=== PATIENT | female | born 1940 | race Caucasian/White ===

== ENCOUNTER → 2018-10-21 11:32 | Outpatient (CLI) | payer MEDICARE, OTHER, SELFPAY ==
--- NOTE | 2018-10-21 | DI.MRI.S_ITS ---
PROCEDURE: MR KNEE RT WO CON INDICATIONS: OSTEOARTHRITIS OF RIGHT KNEE TECHNIQUE: Noncontrast sagittal PD fast spin echo and T2 fast spin echo with fat saturation, sagittal 3-D FLASH with fat saturation; coronal T1 spin echo and PD fast spin echo with fat saturation, and axial PD fast spin echo with fat saturation through the knee. COMPARISON: None. FINDINGS: Image quality: Excellent. Menisci: Marked truncation of the free margin of the posterior horn of the medial meniscus. There is also truncation of the free margin of the body with near complete extrusion. Lateral meniscal tear involving the body with extension of abnormal signal to the superior articular surface. There is also truncation of the free margin of the body. Cruciate ligaments: The anterior cruciate ligament is not seen and is probably ruptured. The posterior cruciate ligament appears intact. Medial structures: The medial collateral ligament appears intact. There is tendinopathy versus strain of the insertion of the semimembranosus tendon with intrasubstance signal change. Lateral structures: Age-indeterminate sprain of the proximal lateral collateral ligament. The long and short heads of the biceps femoris tendon appear intact. The popliteus tendon appears normal; the popliteofibular ligament appears intact. The posterosuperior and anteroinferior popliteomeniscal fascicles appear intact. The arcuate and fabellofibular ligaments appear intact, on either side of the lateral inferior geniculate artery. Iliotibial band appears normal. Anterior structures: The quadriceps and patellar tendons appear intact. Superficial infrapatellar subcutaneous edema is present. Patellar alignment is normal. No femoral trochlear dysplasia or ventral trochlear prominence. No edema in the infrapatellar fat pad. Bones and cartilage: No bone marrow contusions or fractures. Within the medial compartment there is full-thickness femoral and tibial articular cartilage loss. Within the lateral compartment, there is diffuse partial thickness loss of femoral and tibial cartilage. Within the patellofemoral compartment, there is mild partial thickness loss of cartilage overlying the lateral patellar facet. Joint space: Large joint effusion is present. Tiny subcentimeter Lau's cyst. Small sub-5 mm foci of debris within the suprapatellar recess, for example image 126 series 9, image 10 series 6 IMPRESSION: Medial meniscal tear with near complete extrusion of the body. Lateral meniscal tear involving the body. 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 Please correlate to clinical exam findings. Large joint effusion. Small amount of debris within the suprapatellar recess Tiny subcentimeter Lau's cyst. Severe degenerative joint disease, most advanced in the medial compartment where there is full-thickness femoral and tibial articular cartilage loss. Semimembranosus insertional tendinopathy versus strain. Dictated by: Chay Chan M.D. on 10/21/2018 at 13:26 Approved by: Chay Chan M.D. on 10/21/2018 at 14:16
== END ==
PROVIDERS: PCP Family Medicine; Visit Provider Orthopaedic Surgery
DX: M17.11 Unilateral primary osteoarthritis, right knee (principal); S83.281A Other tear of lateral meniscus, current injury, right knee, initial encounter; S83.241A Other tear of medial meniscus, current injury, right knee, initial encounter; S83.511A Sprain of anterior cruciate ligament of right knee, initial encounter; M25.461 Effusion, right knee
CPT/HCPCS: 73721

== ENCOUNTER 2019-01-11 08:34 | Inpatient (IN) | payer MEDICARE, OTHER, SELFPAY ==
[2018-12-23 08:35] VITALS: BMI 30.9
[2019-01-11] VITALS (19 sets, daily range): BP systolic 99–194; BP diastolic 42–86; PULSE 44–68; RESP 12–18; TEMP 35.6–36.7; O2SAT 90–98; BMI 30.7
--- NOTE | 2019-01-11 06:00 | DI.RAD.S_ITS ---
PROCEDURE: XR KNEE RT 1TO2V INDICATIONS: Postop right total knee TECHNIQUE: 2 view(s) of the knee acquired. COMPARISON: ARELI Toth, KNEE 1-2 VIEWS LEFT, 11/22/2009, 15:35. FINDINGS: Bones: Patient is status post knee joint arthroplasty. Hardware components are in expected positions. Visualized bony structures are intact. Soft tissues: Overlying postoperative changes are noted. IMPRESSION: Expected postoperative appearance Dictated by: Chay Chan M.D. on 01/11/2019 at 15:35 Approved by: Chay Chan M.D. on 01/11/2019 at 15:36
[2019-01-11] MEDS: LACTATED RINGERS 1,000 ML 42 ML IV ×2 (09:00→13:24)
[2019-01-11] MEDS: ACETAMINOPHEN 325 MG TABLET 975 MG PO ×2 (09:28→21:36)
[2019-01-11] MEDS: PREGABALIN 75 MG CAPSULE PO (09:28)
[2019-01-11] MEDS: VANCOMYCIN 1,000 MG/200 ML FROZ.PIGGY 200 MG IV ×2 (10:21→22:16)
--- NOTE | 2019-01-11 11:59 | PM.PREOP ---
Pre-operative Note Interval Note History & Physical reviewed/Exam performed by Physician: Yes Changes to H&P: No
--- NOTE | 2019-01-11 12:01 | P.OP_ITS ---
Operative Date/Time/Diagnoses Date of procedure: 01/11/19 Time of procedure: 12:00 Pre-op diagnosis: right knee OA Post-op diagnosis: same Procedure & Clinicians Procedure: right total knee arthroplasty Same procedure as scheduled: Yes Indications: The patient has had progressively worsening right knee pain with radiographic changes consistent with arthritis. Non-operative management has failed and the patient has requested total knee replacement. The risks, benefits and alternatives to surgery were discussed with the patient prior to proceeding. Risks discussed included, but were not limited to, failure to relieve pain, stiffness, infection, nerve damage, deep venous thrombosis, pulmonary embolism, stroke, coma, heart attack, permanent paralysis and , as well as the potential need for eventual revision of the prosthetic. Surgeon: Abby Haji Logistic Specialist: Thierry Carter Anesthesia Type: General and Spinal Operative Notes Findings: Severe right knee osteoarthritis especially in the medial compartment with a moderate cyst in the lateral compartment tibial plateau, good stability, full range of motion Closure Type: primary Specimen(s): none sent Prosthetic devices, grafts, tissues, transplants, or devices: [employer] DCS 2 size 4 right femur, size 3 tibia, +9 poly, 35 x 9 mm patella round Applied: drain(s) Estimated Blood Loss (mL): 250 Blood products transfused: none Tourniquet time (min): 7 Procedure in detail: The patient was seen in the pre-operative area, where the patient identified the right knee as the operative site and this was marked with my initials. The patient received pre-operative antibiotics, and was taken to the operating room and placed on the operative table in the supine position. After satisfactory anesthesia, a corporate fitness program coordinator out was performed. The right leg was encircled with a tourniquet about the proximal thigh, and the leg was prepared from the toes to the tourniquet with ChloroPrep in the usual fashion and draped through sterile drapes. The leg was elevated and exsanguinated with Eschmark bandage and the tourniquet inflated to [250] mmHg pressure. The tourniquet was noted to be a venous tourniquet and was let down after 7 min. There was minimal bleeding. The knee was approached through an approximately 18 cm incision centered over the patella and carried into the knee through a medial parapatellar arthrotomy. A portion of the medial and lateral meniscus was resected. Soft tissue was carefully mobilized around the patella the patella was measured with a caliper. Bone was resected from the patella and the patellar height was reconstituted with up an appropriate sized patellar component. A cover was then placed on the patella. A small amount of additional medial and lateral meniscus was resected. The visionare guide fit well to the distal femur. It looked like an appropriate distal femoral cut and the cut was made without difficulty. The rotation was assessed and the appropriate size femoral guide was placed on the distal femur and finishing cuts were made. There was no evidence of notching. The anterior, posterior and chamfer cuts were then made. The posterior osteophytes and soft tissues were then removed. The posterior capsule was injected with part of a mixture of 60 ml 0.25% Marcaine mixed with 20 ml Exparel for post operative pain control. The remainder of this mixture was injected into the capsule and subcutaneous tissues during cement curing. The tibia was prepared and the visionaire guide fit well to the distal tibia. The rotation was assessed. The patient was placed in extension residual medial and lateral meniscus as well as any residual bone was carefully resected. [No] additional tibia was resected. Hemostasis was achieved especially posteriorly. Additional local was injected into the posterior capsule. The extension gap was assessed and additional releases for gap balancing were performed as necessary. It was well balanced. The femoral component was trial was placed and the notch was finished. Trial tibial and femoral components were then placed and the knee placed through a range of motion. Range of motion was [0-130], with good stability throughout the range. The trials were then removed, and the tibia was finished. The bone was prepared with pulsatile lavage, and dried with a sponge. Cement was applied and the final prosthetics placed. Excess cement was removed during and after cement curing. A brief Betadine soak was performed. After confirming there was no extruded cement posteriorly, the final tibial insert was placed. The knee was copiously irrigated and the tourniquet deflated. Hemostasis was obtained with the [Bovie]. A drain was placed and brought out superolaterally. The capsule was closed with interrupted Vicryl suture. The subcutaneous layer was closed with barbed sutures, and the skin with a running 3-0 V-Lock suture and Surgical glue. An Aquacel Ag dressing was applied and the patient was taken to recovery having tolerated the procedure well. Complications: none Condition: stable Disposition: Acute Care Plan for aftercare: The patient will be maintained on a standard total knee replacement protocol with weight bearing as tolerated. The patient will receive aspirin and sequential compression devices for DVT prophylaxis. The patient will be discharged home when safe for the home environment.
[2019-01-11] MEDS: GENTAMICIN 200 MG in SODIUM CHLORIDE 0.9% 100 ML 105 ML IV (12:02)
--- NOTE | 2019-01-11 12:39 | SUR.OPER ---
Supine on padded OR bed. Pillow under head, arms secured on padded armboards <90 degree abduction. Safety belt across torso. Non-operative leg secured with tape over blanket over lower leg. Operative leg secured in DeMayo/Hipolito positioner. Foam padded brace at thigh of operative leg.
[2019-01-11] MEDS: BUPIVACAINE 0.25% W/ EPI VIAL 50 ML INJ (12:47)
[2019-01-11] MEDS: BUPIVACAINE LIPOSOME 266 MG/20 ML VIAL INJ (12:48)
[2019-01-11] MEDS: POVIDONE-IODINE 15 ML, SODIUM CHLORIDE 0.9% 250 ML TOP (12:49)
--- NOTE | 2019-01-11 15:25 | SUR.PHASEI ---
Spoke with DR Mcdonald regarding BP in light of large difference preop versus post op. With spinal he is okay with assymptomatic SBP >110 for transfer. At this time feet are moving but not felt. Slowly decreasing O2 needs.
[2019-01-11] MEDS: ONDANSETRON 4 MG/2 ML INJ IV (18:36)
[2019-01-11] MEDS: LACTATED RINGERS 1,000 ML 125 ML IV (18:43)
[2019-01-11] MEDS: DOCUSATE 100 MG CAPSULE PO (21:37)
[2019-01-11] MEDS: ASPIRIN EC 81 MG TABLET PO (21:37)
[2019-01-11] MEDS: CHOLECALCIFEROL (VITAMIN D3) 1,000 UNIT TABLET 1000 UNIT PO (21:37)
[2019-01-11] MEDS: OXYCODONE IR 5 MG TABLET PO (21:39)
--- NOTE | 2019-01-11 22:50 | PC.ADMIT ---
Admission Note: Pt arrived to floor. Pt stable. but HR bradycardic in mid to low 40s. reports lightheadedness. Pt started on fluids. admission completed. Uses call light. ate some dinner felt ok. then got up to try to pee and sat back down ad threw up. zofran given. pt stated this helped tremendously. Pt laid back down. ice applied ot knee. reports feeling back to leg but minimal to no pain. light toe touch to right leg. tolerated well to BSC. SCDS on to sancho legs. will continue to monitor.
[2019-01-12] VITALS (7 sets, daily range): BP systolic 133–178; BP diastolic 53–81; PULSE 57–68; RESP 14–18; TEMP 36.3–36.7; O2SAT 91–98
[2019-01-12] MEDS: OXYCODONE IR 5 MG TABLET PO ×6 (01:22→22:57)
--- NOTE | 2019-01-12 03:04 | PC.NURSE ---
Addendum entered by Sydni Guzman R.N. 01/12/19 06:45: Called into pt's room by VOCATIONAL REHABILITATION TEACHER, luis daniel wrap had an area of bright red blood saturation and concern for hemovac line displacement. Removed luis daniel wrap and noted that HV line was still in place, suction re-established, and saw movement of blood in line. Aquacell dressing was C/D/I. Applied new luis daniel wrap after securing HV line. Pt tolerated well. Original Note: Shift Note: Received pt from evening shift. Pt c/o 02/24 pain, medicated per JAN, bilateral 3+ pitting edema to lower extremities. Hemovac disconnected accidentally during toileting. This RN able to reconnect after cleaning tubing with alcohol pad and appropriate suction applied. Pt c/o ongoing acid reflux type symptoms and denies a history of such. Pt declines to have surgeon on-call notified of issue at this time.
[2019-01-12] MEDS: LACTATED RINGERS 1,000 ML 125 ML IV (03:23)
[2019-01-12 06:46] LABS: Hematocrit 35.4 % (36-46); Hemoglobin 12.2 g/dL (12.0-16.0)
--- NOTE | 2019-01-12 09:21 | P.PN_ITS ---
Subjective Date Patient Seen: 01/12/19 Time Patient Seen: 09:18 Interval history: Hospital day 2, postop day 1 following right total knee arthroplasty by Dr. Haji. Patient has remained stable postoperatively. Taking oxycodone for pain. Has Hemovac drain in place with 130 mL output last shift. She has not had physical therapy yet. Patient lives on [place] and is schedule go to [place] [facility]. Exam Vital Signs (past 8 hours): - 01/12/19 03:20 01/12/19 07:30 Temperature 97.5 F L 97.4 F L Pulse Rate 57 L 62 Respiratory Rate 18 18 Blood Pressure 148/53 H 164/68 H Pulse Oximetry 94 93 Oxygen Delivery Method Nasal Cannula Oxygen Flow Rate 1 Narrative Exam Narrative: Alert, oriented no acute distress resting in bed. Legs. Baudilio wrap and Aquacel dressing to right knee are dry without drainage or inflammation. Hemovac in place. No calf pain or swelling. Pulses symmetrical. Objective Labs Result Diagrams: 01/12/19 06:24 Labs: Laboratory Results - last 24 hr 01/12/19 06:24 Hgb 12.2 Hct 35.4 L Assessment & Plan Post-op Postoperative Procedures Operation Date: 01/11/19 10:45 Actual Procedures Side Surgeon p Total Knee Arthroplasty Right Abby Haji MD Plan: Patient will work with PT today. Will need to have Hemovac drainage decreased significantly before DC. Anticipate possible DC home tomorrow to [place]. She is thus with palpation and has postop pain meds at home. Quality VTE Deep Vein Thrombosis/Pulmonary Embolism Present on Admission: No
[2019-01-12] MEDS: ACETAMINOPHEN 325 MG TABLET 975 MG PO ×3 (10:05→20:08)
[2019-01-12] MEDS: ASCORBIC ACID 500 MG TABLET PO (10:06)
[2019-01-12] MEDS: ASPIRIN EC 81 MG TABLET PO ×2 (10:06→20:08)
[2019-01-12] MEDS: CARVEDILOL 25 MG TABLET PO ×2 (10:06→20:10)
[2019-01-12] MEDS: IRBESARTAN 150 MG TABLET PO (10:07)
[2019-01-12] MEDS: DOCUSATE 100 MG CAPSULE PO ×2 (10:07→20:08)
[2019-01-12] MEDS: dilTIAZem CD 180 MG CAP PO (10:07)
[2019-01-12] MEDS: hydroCHLOROthiazide 25 MG TABLET PO (10:07)
[2019-01-12] MEDS: INSULIN GLARGINE 100 UNIT/ML 3ML PEN 50 UNIT SUBCUT (10:08)
--- NOTE | 2019-01-12 11:00 | CM.DANOTE ---
DCP: Case received, EMR reviewed and met with patient. Introduced self and role. DCP template completed with information currently available. Patient is a 78 year old female who admitted yesterday morning to the care of the surgical team. PCP: Dr. Hernandez Payer: confirmed: Medicare/[facility]. Patient came to hospital for a surgical procedure. Has R. Total Knee Arthroplasty. Patient had problems with her knee in the past, popping and clicking while ambulating. Patient lives on [address] with her spouse, Eric. she also stated that she has caregivers coming in to help, for her will be out of town for a while. She still anticipates going to outpatient physical therapy. She also stated she has crutches for use. P: DCP to continue to assess. Will be working with physical therapy team today. Could possibly discharge tomorrow, if stable enough for home. Elissa Tafoya RN/Social Work Coordinator
--- NOTE | 2019-01-12 12:44 | PT.IIE ---
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) Status post cataract extraction of both eyes with insertion of intraocular lens (Acute) Status post hysterectomy Medical History (Last Updated 12/23/18 @ 11:53 by Marta Durbin, RN) Asthma (Acute) Bilateral hip bursitis (Acute) Bleeds easily (Acute) CAD (coronary artery disease) (Acute) Compression fracture (Acute ~1982) Diabetes (Acute) Diverticulosis (Acute) Easy bruisability (Acute) HTN (hypertension) (Acute) Hx of migraines (Acute) Hyperlipidemia (Acute) Large bowel obstruction (Acute ~2014) Non-STEMI (non-ST elevated myocardial infarction) (Acute 07/20/16) Pneumonia (Acute) Physical Therapy Inpatient Evaluation/Re-Eval M1 PT/OT-IP Prior Functional Status Start: 01/12/19 08:28 Freq: NEEDED Status: Active Protocol: Document 01/12/19 12:44 DLM (Rec: 01/12/19 13:03 DLM [email or web address]) Medical Review Prior Functional Status Medical History Reviewed Yes Diet/Fluid Consistency Regular Communication WNL Mobility and Gait Independent, used forearm crutches as needed before surgery to manage her knee pain Activities of Daily Living and IADL's Independent Social History Household Members spouse Living Arrangements House Number of Floors (Floors) One Floor Number of Stairs To Enter/Railing? 3 Home Equipment Front Wheel Walker Crutches Raised Toilet Seat w/Armrests Additional Social History Comment forearm crutches, has a path to the house that is not paved , she plans to use fWW in the house and crutches outside of the house M2 PT-IP Current Condition Start: 01/12/19 08:28 Freq: NEEDED Status: Active Protocol: Document 01/12/19 12:44 DLM (Rec: 01/12/19 13:03 DLM [email or web address]) Physical Therapy Current Condition Current Condition Evaluation Date 01/12/19 Treatment Diagnosis right TKA, impaired gait Onset Date 01/11/19 Weight Bearing Status Weight Bearing Status Weight Bear as Tolerated M3 PT-IP Subjective Start: 01/12/19 08:28 Freq: NEEDED Status: Active Protocol: Document 01/12/19 12:44 DLM (Rec: 01/12/19 13:03 DLM [email or web address]) Subjective Physical Therapy Visit Type Type Initial Evaluation Visit Start Time 12:05 Visit Stop Time 12:44 Total Visit Minutes 35 Number of GENERAL SURGEON Visits 0 Physical Therapy Visit Comments Patient Comments She has out-pt PT set up Patient Goals go home with Spouse Therapy Pain Assessment Pain When Pain Assessed After Treatment Pain Present Pain Present Pain Reported Location Right Knee Intensity 5 Scale Used Numeric (1 - 10) Description Aching Tender With Movement Pain Behaviors Wincing Pain Management Techniques Apply Cold Re-positioning Timing of Activity with Medications M4 PT-IP Mobility and Gait Start: 01/12/19 08:28 Freq: NEEDED Status: Active Protocol: Document 01/12/19 12:44 DLM (Rec: 01/12/19 13:03 DLM [email or web address]) PT-Bed Mobility Assessment Supine to Sit Supine to Sit Standby Assistance Sit to Supine Sit to Supine Minimal Assistance Scooting Scooting to Edge of Bed Independent Scooting Up and Down in Bed Independent PT-Transfer Assessment Sit to and From Stand Sit to and from Stand Standby Assistance Use of Upper Extremities Equipment Transfer Assistive Device Gait Belt Front Wheeled Walker Transfers Transfer Destination Chair Toilet Transfer Technique Stand Step Pivot Transfer Ability Level of Assist Standby Assistance Use of Upper Extremities Gait Assessment Gait Gait Assistance Required: Standby Assistance Distance (Feet) 20 Assistive Devices Assistive Device Gait Belt Front Wheeled Walker Gait Deviations General Gait Pattern Antalgic Factors Limiting Gait Function Factors Limiting Gait Function Decreased Activity Tolerance Decreased Strength Limited Range of Motion Pain PT-Balance Assessment Sitting Balance and Reactions Static Sitting Balance Ability Normal Dynamic Sitting Balance Ability Normal Standing Balance and Reactions Static Standing Balance Ability Good Dynamic Standing Balance Ability Good Device Used FWW M5 PT-IP Objective Assessments Start: 01/12/19 08:28 Freq: NEEDED Status: Active Protocol: Document 01/12/19 12:44 DLM (Rec: 01/12/19 13:03 DLM [email or web address]) Orientation Orientation/Cognition Level of Alertness Alert Orientation Name Age Birthday Month Date Year Day of Week Place Situation Language Function Ability No Deficits Noted Safety Awareness Understands Safety Issues Memory Description No Deficits Noted Gross Range of Motion Upper Extremity ROM Assessment Within Functional Limits Lower Extremity ROM Assessment Right Impaired Impairments 0-70 degrees right knee Strength Upper Extremity Strength Assessment Within Functional Limits Lower Extremity Strength Assessment Right Impaired Hip needs assist for straight leg raise Knee 2+/5 Ankle 4+/5 Coordination Assessment Gross Coordination Gross Coordination WNL Sensation Assessment Sensation Gross Sensation Right LE Impaired Comments Sensation Comments mild numbness in right knee area Muscle Tone Muscle Tone WNL Yes Other Assessments Other Other Assessments issues with blood leaking around hemovac earlier this AM , hemovac still in place M6 PT-IP Treatment Start: 01/12/19 08:28 Freq: NEEDED Status: Active Protocol: Document 01/12/19 12:44 DLM (Rec: 01/12/19 13:03 DLM [email or web address]) Physical Therapy Treatment Exercises Exercises Ankle Pumps Quad Sets Heel Slides Straight Leg Raises Short Arc Quads Passive Knee Extension Hang Education Education Provided Post-Op Packet Safety Equipment Issued Equipment Type and Company she owns a FWW and forearm crutches, FWW in her room, crutches in car and Spouse to bring them in Other Treatments Other Treatment Performed her Spouse is present during this visit M7 PT-IP Assessment and Plan Start: 01/12/19 08:28 Freq: NEEDED Status: Active Protocol: Document 01/12/19 12:44 DLM (Rec: 01/12/19 13:03 DLM [email or web address]) PT Summary Assessment and Plan Potential Rehabilitation Potential Excellent Status of Condition at Evaluation Evolving Summary Impairments Pain ROM Strength Bed Mobility Transfers Gait Activity Tolerance Assessment Summary Franca tolerated gait in her room well with fWW. TKA exercises initiated this visit . Pt up to chair for lunch. Noted edema in bilateral distal LE's today. Franca reports her pain is well controlled at rest but still having increased pain during mobility. Anticipate she will be able to discharge home with her Spouse as she progresses. She will need additional gait training with crutches so she can use them on the path into her house. Goals Bed Mobility Goal Independent Transfer Goal Independent Front Wheeled Walker Gait Goal Independent Front Wheel Walker Gait Distance 150 feet Other Goals Gait with forearm crutches and CG assist x 100 feet. Days to Meet Goals 2 Frequency of Treatment Frequency Of Treatment Twice a Day Treatment Plan Physical Therapy Treatment Plan Bed Mobility Training Transfer Training Gait Training Therapeutic Exercise Post Op Education Discharge Planning Hot or Cold Pack Recommendations To Nursing Amount of Assist Needed 1 Person Assist Discharge Recommendations PT Discharge Recommendations Home with Assistance Outpatient PT
--- NOTE | 2019-01-12 15:22 | PT.IPTN ---
Current Diagnoses Unilateral primary osteoarthritis, right knee (01/11/19) Surgery Performed Operation Date: 01/11/19 10:45 Actual Procedures p Total Knee Arthroplasty(Right) - Abby Haji MD Physical Therapy Treatment Note M2 PT-IP Current Condition Start: 01/12/19 08:28 Freq: NEEDED Status: Active Protocol: Document 01/12/19 15:22 DLM (Rec: 01/12/19 16:38 DLM [email or web address]) Physical Therapy Current Condition Current Condition Evaluation Date 01/12/19 Treatment Diagnosis right TKA, impaired gait Onset Date 01/11/19 Weight Bearing Status Weight Bearing Status Weight Bear as Tolerated M3 PT-IP Subjective Start: 01/12/19 08:28 Freq: NEEDED Status: Active Protocol: Document 01/12/19 15:22 DLM (Rec: 01/12/19 16:38 DLM [email or web address]) Subjective Physical Therapy Visit Type Type Treatment Note Visit Start Time 14:45 Visit Stop Time 15:22 Total Visit Minutes 37 Number of WASHER MACHINE Visits 0 Physical Therapy Visit Comments Patient Comments she is tired this afternoon Therapy Pain Assessment Pain When Pain Assessed After Treatment Pain Present Pain Present Pain Reported Location Right Knee Intensity 4 Scale Used Numeric (1 - 10) Description Aching Tender With Movement Pain Behaviors Wincing Pain Management Techniques Apply Cold Re-positioning Timing of Activity with Medications M4 PT-IP Mobility and Gait Start: 01/12/19 08:28 Freq: NEEDED Status: Active Protocol: Document 01/12/19 15:22 DLM (Rec: 01/12/19 16:38 DLM [email or web address]) PT-Bed Mobility Assessment Supine to Sit Supine to Sit Standby Assistance Sit to Supine Sit to Supine Minimal Assistance Scooting Scooting to Edge of Bed Independent Scooting Up and Down in Bed Independent PT-Transfer Assessment Sit to and From Stand Sit to and from Stand Standby Assistance Use of Upper Extremities Equipment Transfer Assistive Device Gait Belt Front Wheeled Walker Transfers Transfer Destination Bedside Commode Transfer Technique Stand Step Pivot Transfer Ability Level of Assist Standby Assistance Use of Upper Extremities Gait Assessment Gait Gait Assistance Required: Standby Assistance Distance (Feet) 100 Able to Maintain Weight Bearing Status Yes During Gait Assistive Devices Assistive Device Gait Belt Front Wheeled Walker Gait Deviations General Gait Pattern Antalgic Factors Limiting Gait Function Factors Limiting Gait Function Decreased Activity Tolerance Decreased Strength Limited Range of Motion Pain Comments Gait Comments gait trial also performed with her forearm crutches with min assist x 45 feet PT-Balance Assessment Sitting Balance and Reactions Static Sitting Balance Ability Normal Dynamic Sitting Balance Ability Normal Standing Balance and Reactions Static Standing Balance Ability Good Dynamic Standing Balance Ability Good Device Used FWW M5 PT-IP Objective Assessments Start: 01/12/19 08:28 Freq: NEEDED Status: Active Protocol: Document 01/12/19 15:22 DLM (Rec: 01/12/19 16:38 DLM [email or web address]) Orientation Orientation/Cognition Level of Alertness Alert Orientation Name Age Birthday Month Date Year Day of Week Place Situation Language Function Ability No Deficits Noted Safety Awareness Understands Safety Issues Memory Description No Deficits Noted M6 PT-IP Treatment Start: 01/12/19 08:28 Freq: NEEDED Status: Active Protocol: Document 01/12/19 15:22 DLM (Rec: 01/12/19 16:38 DLM [email or web address]) Physical Therapy Treatment Exercises Exercises Ankle Pumps Quad Sets Heel Slides Straight Leg Raises Short Arc Quads Passive Knee Extension Hang Seated Knee Flexion/Extension Knee ROM Measurement 0-80 degrees Education Education Provided Post-Op Packet Safety Equipment Issued Equipment Type and Company her FWW and forearm crutches are in her room Other Treatments Other Treatment Performed no family present during this visit M7 PT-IP Assessment and Plan Start: 01/12/19 08:28 Freq: NEEDED Status: Active Protocol: Document 01/12/19 15:22 DLM (Rec: 01/12/19 16:38 DLM [email or web address]) PT Summary Assessment and Plan Potential Rehabilitation Potential Excellent Summary Impairments Pain ROM Strength Bed Mobility Transfers Gait Activity Tolerance Progress Towards Goals Progressing Toward Goals Assessment Summary Franca was able to increase her distance of gait this afternoon. Trialed the forearm crutches but pt reports increased knee pain and decreased balance with the crutches compared to the fWW. Will plan to do stair training tomorrow. Continue to plan for discharge home with assist from her Spouse. Goals Bed Mobility Goal Independent Transfer Goal Independent Front Wheeled Walker Gait Goal Independent Front Wheel Walker Gait Distance 150 feet Other Goals Gait with forearm crutches and CG assist x 100 feet. Days to Meet Goals 2 Frequency of Treatment Frequency Of Treatment Twice a Day Treatment Plan Physical Therapy Treatment Plan Bed Mobility Training Transfer Training Gait Training Therapeutic Exercise Post Op Education Discharge Planning Hot or Cold Pack Recommendations To Nursing Amount of Assist Needed 1 Person Assist Discharge Recommendations PT Discharge Recommendations Home with Assistance Outpatient PT
[2019-01-12] MEDS: diphenhydrAMINE 25 MG TABLET 50 MG PO (19:26)
[2019-01-12] MEDS: CHOLECALCIFEROL (VITAMIN D3) 1,000 UNIT TABLET 1000 UNIT PO (20:08)
--- NOTE | 2019-01-12 23:50 | PC.NURSE ---
1500- assumed care of pt. Pt cooperative. awake, uses call light. waits for assistance, will be in later. cooperative with nursing staff and student Pt has been eating prunes to try to have a bm. pt tried a few times today to sit on toilet to no avail. Pts pain is controlled with oxycodone. gave PRN per MAR. ice applied. aquacel c.d.i hv still draining .starting to bruise around Hv insertion site. Pt particular about care and where items are placed. will continue to monitor. encouraged IS use. pt complains that she hasn't gotten a nap and that she didnt get much sleep last night. called md air conditioning unit tester for order for benadryl. pt itching pretty bad. given per JAN. also notified md about high volumes of HV output and how thick it is. stated that this is ok as VSS and Hgb stable per draw in AM. will continue to monitor. discussed stairs at home for pt and t states she has three 6 inch stairs at home. hoping her can be here for that teaching. will continue to monitor.
[2019-01-13] MEDS: OXYCODONE IR 5 MG TABLET PO ×3 (02:38→12:38)
[2019-01-13 03:48] VITALS: BP 177/68; PULSE 64; RESP 16; TEMP 36.8; O2SAT 92
[2019-01-13 08:14] VITALS: BP 159/67; PULSE 69
[2019-01-13] MEDS: ASPIRIN EC 81 MG TABLET PO (08:14)
[2019-01-13] MEDS: ACETAMINOPHEN 325 MG TABLET 975 MG PO (08:14)
[2019-01-13] MEDS: ASCORBIC ACID 500 MG TABLET PO (08:14)
[2019-01-13] MEDS: CARVEDILOL 25 MG TABLET PO (08:14)
[2019-01-13] MEDS: dilTIAZem CD 180 MG CAP PO (08:16)
[2019-01-13] MEDS: DOCUSATE 100 MG CAPSULE PO (08:16)
[2019-01-13] MEDS: hydroCHLOROthiazide 25 MG TABLET PO (08:16)
[2019-01-13] MEDS: IRBESARTAN 150 MG TABLET PO (08:17)
[2019-01-13] MEDS: INSULIN GLARGINE 100 UNIT/ML 3ML PEN 50 UNIT SUBCUT (08:17)
[2019-01-13 08:21] VITALS: BP 159/67; PULSE 70; RESP 18; TEMP 36.9; O2SAT 92
--- NOTE | 2019-01-13 09:02 | P.DS_ITS ---
History of Present Illness Date Patient Seen: 01/13/19 Time Patient Seen: 08:59 Chief complaint: [id number] Total Knee Arthroplasty Narrative: Hospital day 3, postop day 2 following right total knee arthroplasty. Patient states she is doing better today. Did well with physical therapy yesterday. Hemovac drainage is decreased. Patient desiring to go home today. Discharge Providers Date of admission: 01/11/19 08:34 Discharge Date: 01/13/19 Primary care physician: Jorge Hernandez MD Consults: 01/11/19 06:00 Consult to Anesthesiology Routine Comment: Consulting Provider: Anesthesiologist Reason for consultation: Regional block for post operative pain control 01/11/19 18:13 Consult to Discharge Planning Routine Comment: Consult to Physical Therapy Evaluate & Treat Comment: Physician Instructions: post op TIMI protocol Consult to Respiratory Therapy Evaluate & Treat Comment: Physician Instructions: Evaluate and treat Discharge provider: Thierry Carter PA-C Summary Discharge Diagnosis: Status post right total knee arthroplasty. Hospital Course: Patient brought to hospital on 01/11/2019 for above-noted surgery. She remained stable postoperatively. Progressed well with physical therapy. Ready for discharge home on postop day 2. Status at Discharge Cognitive/behavioral status at discharge: Alert, oriented no acute distress sitting in chair. Functional status at discharge: uses cane/walker Overall status at discharge: patient is progressing back to baseline Time Spent with Patient Less than 30 minutes Exam Vital Signs (past 8 hours): - 01/13/19 03:48 01/13/19 08:14 01/13/19 08:21 Temperature 98.2 F 98.5 F Pulse Rate 64 69 70 Respiratory Rate 16 18 Blood Pressure 177/68 H 159/67 H 159/67 H Pulse Oximetry 92 92 Oxygen Delivery Method Room Air Oxygen Flow Rate 0 Narrative Exam Narrative: Legs. Aquacel dressing to right knee is dry without drainage or inflammation. Hemovac in place with decreased drainage. No calf pain or swe lling. There is moderate bruise to the proximal medial calf. Good pulses distally. Patient is able to actively bend her knee. Objective Labs Result Diagrams: 01/12/19 06:24 Discharge Plan Discharge Plan Patient Disposition: Home Discharge comment: Discharge home after cleared by PT. JOSH Hemovac. Patient is a [facility] patient and has postoperative pain medication at home for oxycodone and Vistaril. Discharge Med Rec/Prescriptions Prescriptions: New acetaminophen 325 mg Tablet 975 mg PO TID Qty: 30 RF: 0 aspirin 81 mg Tablet,Delayed Release (Dr/Ec) 81 mg PO BID Qty: 60 RF: 0 Continued cholecalciferol (vitamin D3) [Vitamin D3] 1,000 unit Capsule 1,000 unit PO BEDTIME Qty: 0 RF: 0 cyanocobalamin (vitamin B-12) 1,000 MCG tablet extended release 1 tab PO DAILY Qty: 0 RF: 0 mupirocin 2 % ointment 1 deanna Topical BID Qty: 22 RF: 0 [TRUET GLUCOSE STRIPS] 1 strip NR QDAY Qty: 100 RF: 5 ascorbic acid (vitamin C) 500 MG tablet 500 mg PO QDAY Qty: 0 RF: 0 Lantus U-100 Insulin 100 unit/mL Solution 50 unit SUBCUT QAM RF: 0 diltiazem HCl 180 mg Capsule,Extended Release 24 Hr 180 mg PO DAILY RF: 0 irbesartan 75 mg Tablet 150 mg PO DAILY RF: 0 hydrochlorothiazide 25 mg Tablet 25 mg PO DAILY RF: 0 ibuprofen 600 mg Tablet 600 mg PO TID PRN (Reason: pain) RF: 0 potassium gluconate 595 mg (99 mg) Tablet 595 mg PO DAILY RF: 0 carvedilol [Coreg] 12.5 MG tablet 25 mg PO BID RF: 0 ezetimibe [Zetia] 10 MG tablet 10 mg PO BEDTIME RF: 0 Victoza 2-Reuben 0.6 MG/0.1 ML pen injector 0.6 mg SQ QPM RF: 0 cyanocobalamin (vitamin B-12) [Vitamin B-12] 1,000 mcg Tablet 1,000 mcg PO DAILY RF: 0 Discontinued aspirin 81 MG tablet,chewable 81 mg PO BEDTIME Qty: 30 RF: 0 acetaminophen 500 MG tablet 1,000 mg PO BEDTIME PRN (Reason: pain) Qty: 0 RF: 0 Follow up/Referrals: Jorge Hernandez MD [Primary Care Provider] - Provider Discharge Instructions Diet: Diet as Tolerated Cold/Heat Therapy: Cold pack to knee as needed. Skin/Wound/Dressing Care Report to your healthcare provider any signs of infection, such as:: chills, fever, night sweats, increased pain, unusual drainage and unusual redness Dressing: Keep the Aquacel dressing in place until postop visit. Visit Report/Discharge Packet Instructions: DI for Knee Replacement Discharge Data Primary Care Provider: Jorge Hernandez Attending Provider: Abby Haji Admit Date/Time: 01/11/19 08:34 Quality VTE Deep Vein Thrombosis/Pulmonary Embolism Present on Admission: No
--- NOTE | 2019-01-13 09:49 | PT.IPTN ---
Current Diagnoses Unilateral primary osteoarthritis, right knee (01/11/19) Surgery Performed Operation Date: 01/11/19 10:45 Actual Procedures p Total Knee Arthroplasty(Right) - Abby Haji MD Physical Therapy Treatment Note M2 PT-IP Current Condition Start: 01/12/19 08:28 Freq: NEEDED Status: Active Protocol: Document 01/12/19 15:22 DLM (Rec: 01/12/19 16:38 DLM [email or web address]) Physical Therapy Current Condition Current Condition Evaluation Date 01/12/19 Treatment Diagnosis right TKA, impaired gait Onset Date 01/11/19 Weight Bearing Status Weight Bearing Status Weight Bear as Tolerated M3 PT-IP Subjective Start: 01/12/19 08:28 Freq: NEEDED Status: Active Protocol: Document 01/13/19 09:37 SA (Rec: 01/13/19 09:49 SA [email or web address]) Subjective Physical Therapy Visit Type Type Treatment Note Visit Start Time 09:02 Visit Stop Time 09:35 Total Visit Minutes 33 Number of CONSUMER AFFAIRS SPECIALIST Visits 1 Physical Therapy Visit Comments Patient Comments Pt reports knee pain is being managed, only really hurts when she is WBing or bending it. Patient Goals To D/C home to [place] today . Therapy Pain Assessment Pain When Pain Assessed During Mobility Pain Present Pain Present Pain Reported Location Right Knee Intensity 4 Scale Used Numeric (1 - 10) Description Aching Tender With Movement Pain Management Techniques Apply Cold Re-positioning Timing of Activity with Medications M4 PT-IP Mobility and Gait Start: 01/12/19 08:28 Freq: NEEDED Status: Active Protocol: Document 01/13/19 09:37 SA (Rec: 01/13/19 09:49 SA [id number]) PT-Bed Mobility Assessment Supine to Sit Supine to Sit Standby Assistance Sit to Supine Sit to Supine Standby Assistance Scooting Scooting to Edge of Bed Independent Scooting Up and Down in Bed Independent PT-Transfer Assessment Sit to and From Stand Sit to and from Stand Standby Assistance Use of Upper Extremities Equipment Transfer Assistive Device Gait Belt Front Wheeled Walker Forearm Crutches Transfers Transfer Destination Chair Wheelchair Transfer Technique Stand Step Pivot Transfer Ability Level of Assist Standby Assistance Use of Upper Extremities Comments Mobility Comments Pt SBA with most mobility tasks, uses AD safely and is able to tolerate WBing through RLE well. Completed stand pivot txs with FWW, forearm crutches and 4WW, all were SBA . Gait Assessment Gait Gait Assistance Required: Standby Assistance Distance (Feet) 225 Able to Maintain Weight Bearing Status Yes During Gait Assistive Devices Assistive Device Gait Belt Front Wheeled Walker 4 Wheeled Walker Orthotic/Prosthetic Devices or Brace: No Gait Deviations General Gait Pattern Antalgic Factors Limiting Gait Function Factors Limiting Gait Function Decreased Activity Tolerance Decreased Strength Limited Range of Motion Pain Comments Gait Comments Initial walk about 100 feet with FWW and SBA, cues for R knee flexion for foot clearance and upright posture. Later walk was 125 feet with 4WW and SBA, pt managed 4WW well and states she has about 70 feet of uneven bark surface to walk from car to her home, we both feel 4WW would be optimal AD for this rather than her fore arm crutches or FWW. Stair Climbing Assessment Evaluation Level of Assist On Stairs Contact Guard Assistance Devices Stair Climbing Assistive Devices Forearm Crutches Technique/Endurance Stair Climbing Direction Ascend and Descend Stair Climbing Technique Step to Step Number of Steps Climbed 1 Query Text: Stair Climbing Set # Repetitions (reps) 2 Comments Stair Climbing Comments Used platform to ascend/ descend with forearm crutches and CGA, competed 2x with Mod cues for safe technique. Pt has no rails and shollow platform like steps at home. M5 PT-IP Objective Assessments Start: 01/12/19 08:28 Freq: NEEDED Status: Active Protocol: Document 01/12/19 15:22 DLM (Rec: 01/12/19 16:38 DLM [email or web address]) Orientation Orientation/Cognition Level of Alertness Alert Orientation Name Age Birthday Month Date Year Day of Week Place Situation Language Function Ability No Deficits Noted Safety Awareness Understands Safety Issues Memory Description No Deficits Noted M6 PT-IP Treatment Start: 01/12/19 08:28 Freq: NEEDED Status: Active Protocol: Document 01/13/19 09:37 SA (Rec: 01/13/19 09:49 SA [id number]) Physical Therapy Treatment Exercises Exercises Ankle Pumps Quad Sets Heel Slides Straight Leg Raises Short Arc Quads Passive Knee Extension Hang Seated Knee Flexion/Extension Knee ROM Measurement 0-80 degrees Education Education Provided Post-Op Packet Safety Equipment Issued Equipment Type and Company Will need 4WW for pathway from car<>home. Other Treatments Other Treatment Performed no family present during this visit M7 PT-IP Assessment and Plan Start: 01/12/19 08:28 Freq: NEEDED Status: Active Protocol: Document 01/13/19 09:37 SA (Rec: 01/13/19 09:49 SA [id number]) PT Summary Assessment and Plan Potential Rehabilitation Potential Excellent Status of Condition at Evaluation Stable Summary Impairments Pain ROM Strength Bed Mobility Transfers Gait Activity Tolerance Progress Towards Goals Progressing Toward Goals Assessment Summary Pt able to manage stairs with forearm crutches and CGA and would be safe with at home. Order for 4WW to manage uneven pathway to/from car/ home as this is the safest AD for that task and she did really well with 4WW. Frequency of Treatment Frequency Of Treatment Twice a Day Treatment Plan Physical Therapy Treatment Plan Bed Mobility Training Transfer Training Gait Training Therapeutic Exercise Post Op Education Discharge Planning Hot or Cold Pack Recommendations To Nursing Amount of Assist Needed 1 Person Assist Discharge Recommendations PT Discharge Recommendations Home with Assistance Outpatient PT
[2019-01-13 10:00] VITALS: O2SAT 94
--- NOTE | 2019-01-13 13:57 | PT.IPTN ---
Current Diagnoses Unilateral primary osteoarthritis, right knee (01/11/19) Surgery Performed Operation Date: 01/11/19 10:45 Actual Procedures p Total Knee Arthroplasty(Right) - Abby Haji MD Physical Therapy Treatment Note M2 PT-IP Current Condition Start: 01/12/19 08:28 Freq: NEEDED Status: Active Protocol: Document 01/12/19 15:22 DLM (Rec: 01/12/19 16:38 DLM [email or web address]) Physical Therapy Current Condition Current Condition Evaluation Date 01/12/19 Treatment Diagnosis right TKA, impaired gait Onset Date 01/11/19 Weight Bearing Status Weight Bearing Status Weight Bear as Tolerated M3 PT-IP Subjective Start: 01/12/19 08:28 Freq: NEEDED Status: Active Protocol: Document 01/13/19 13:50 SA (Rec: 01/13/19 13:57 SA [email or web address]) Subjective Physical Therapy Visit Type Type Treatment Note Visit Start Time 13:35 Visit Stop Time 13:46 Total Visit Minutes 11 Number of HOT STRIP MILL SUPERVISOR Visits 2 Physical Therapy Visit Comments Patient Comments Pt at EOB ready for d/c. present. Therapy Pain Assessment Pain When Pain Assessed During Mobility Pain Present Pain Present Pain Reported Location Right Knee Intensity 3 Scale Used Numeric (1 - 10) Description Aching Tender With Movement Pain Management Techniques Apply Cold Re-positioning Timing of Activity with Medications M4 PT-IP Mobility and Gait Start: 01/12/19 08:28 Freq: NEEDED Status: Active Protocol: Document 01/13/19 13:50 SA (Rec: 01/13/19 13:57 SA [email or web address]) PT-Transfer Assessment Sit to and From Stand Sit to and from Stand Standby Assistance Use of Upper Extremities Equipment Transfer Assistive Device 4 Wheeled Walker Orthotic/Prosthetic Devices or Brace: No Transfers Transfer Destination Wheelchair Transfer Ability Level of Assist Standby Assistance Use of Upper Extremities Comments Mobility Comments Dispensed and sized FWW prior to pt d/c. Stand pivot tx EOB> WC with 4WW and SBA. Min cues for use of 4WW brakes. Gait Assessment Gait Gait Assistance Required: Standby Assistance Distance (Feet) 15 Able to Maintain Weight Bearing Status Yes During Gait Assistive Devices Assistive Device 4 Wheeled Walker Orthotic/Prosthetic Devices or Brace: No Gait Deviations General Gait Pattern Antalgic Comments Gait Comments Short walk in room with new 4WW and made sure size is appropriate, SBA with min cues . M5 PT-IP Objective Assessments Start: 01/12/19 08:28 Freq: NEEDED Status: Active Protocol: Document 01/12/19 15:22 DLM (Rec: 01/12/19 16:38 DLM [email or web address]) Orientation Orientation/Cognition Level of Alertness Alert Orientation Name Age Birthday Month Date Year Day of Week Place Situation Language Function Ability No Deficits Noted Safety Awareness Understands Safety Issues Memory Description No Deficits Noted M6 PT-IP Treatment Start: 01/12/19 08:28 Freq: NEEDED Status: Active Protocol: Document 01/13/19 09:37 SA (Rec: 01/13/19 09:49 SA [id number]) Physical Therapy Treatment Exercises Exercises Ankle Pumps Quad Sets Heel Slides Straight Leg Raises Short Arc Quads Passive Knee Extension Hang Seated Knee Flexion/Extension Knee ROM Measurement 0-80 degrees Education Education Provided Post-Op Packet Safety Equipment Issued Equipment Type and Company Will need 4WW for pathway from car<>home. Other Treatments Other Treatment Performed no family present during this visit M7 PT-IP Assessment and Plan Start: 01/12/19 08:28 Freq: NEEDED Status: Active Protocol: Document 01/13/19 13:50 SA (Rec: 01/13/19 13:57 SA [email or web address]) PT Summary Assessment and Plan Potential Rehabilitation Potential Excellent Status of Condition at Evaluation Stable Summary Assessment Summary Pt ready for D/C home, uses 4WW safely. Discharge Recommendations PT Discharge Recommendations Home with Assistance Outpatient PT
--- NOTE | 2019-01-13 14:12 | PC.NURSE ---
Discharge pt states pain controlled with 5mg oxy. up with PT and walker/crutches. d/c instructions provided to pt. aware of f/u apt with ortho. will contact MD with any additional questions or concerns. Received four wheel walker prior to d/c. pt states she took all belongings with her. left with in w/c with RN escort to car. provided pt with priority boarding pass for [facility] at [id number].
--- NOTE | 2019-01-13 14:51 | CM.DPC ---
DCP: continued: case received and discussed in Team Rounds. Ortho DHEERAJ Carter and the therapy team state pt is stable for home setting today and that [place]. Checked in with pt and her Eric. Both confirm this plan and that all is set up for OUTPT PT on [place]. WALLACE: # 2 presented. Pt was eating lunch and asked her spouse to sign for her/done. Pt notes she is very ready to go home today.
== END 2019-01-13 13:45 | disposition home or self-care (01) | DRG 470 ==
PROVIDERS: Admitting Provider Orthopaedic Surgery; PCP Family Medicine; Visit Provider Orthopaedic Surgery
PROC: 0SRC0JZ Replacement of Right Knee Joint with Synthetic Substitute, Open Approach (ICD-10-PCS; CPT 27447; principal; 2019-01-11 10:45)
DX: M17.11 Unilateral primary osteoarthritis, right knee (principal); I10 Essential (primary) hypertension; E78.5 Hyperlipidemia, unspecified; E11.9 Type 2 diabetes mellitus without complications; I25.10 Atherosclerotic heart disease of native coronary artery without angina pectoris; Z87.891 Personal history of nicotine dependence; Z79.4 Long term (current) use of insulin
CPT/HCPCS: 36415; 73560; 82962; 85014; 85018; 94760; 97110; 97116; 97162; 97530; C1776; C9290; J2250; J2274; J2405; J2704; J3370

== ENCOUNTER → 2019-07-30 13:10 | Outpatient (CLI) | payer MEDICARE, OTHER, SELFPAY ==
[2019-01-11 18:00] VITALS: BMI 30.7
--- NOTE | 2019-07-30 | DI.MRI.S_ITS ---
PROCEDURE: MR KNEE LT WO CON INDICATIONS: Unilateral primary osteoarthritis, left knee TECHNIQUE: Noncontrast sagittal PD fast spin echo and T2 fast spin echo with fat saturation, sagittal 3-D FLASH with fat saturation; coronal T1 spin echo and PD fast spin echo with fat saturation, and axial PD fast spin echo with fat saturation through the knee. COMPARISON: [facility], MR, MR KNEE RT WO CON, 10/21/2018, 11:54. FINDINGS: Image quality: Excellent. Menisci: There is peripheral displacement of the medial meniscus only medial collateral ligament. Truncated appearance of the medial meniscus is seen, suggestive of chronic complex tear involving medial meniscus versus prior partial meniscectomy. There is no gross focal lateral meniscal tear. The meniscal root ligaments appear intact. Cruciate ligaments: Anterior cruciate ligament is not visualized suggestive of chronic ACL rupture. Posterior cruciate ligament is intact. Medial structures: There is very low-grade MCL sprain. The posterior oblique ligament, semimembranosus tendon insertions, oblique popliteal ligament, and meniscocapsular junction appear intact. Visualized portions of the pes anserinus tendons appear normal. No abnormal bursal fluid. Lateral structures: Low-grade proximal LCL sprain/partial thickness tear is seen near its femoral insertion. The long and short heads of the biceps femoris tendon appear intact. The popliteus tendon appears normal; the popliteofibular ligament appears intact. The posterosuperior and anteroinferior popliteomeniscal fascicles appear intact. The arcuate and fabellofibular ligaments appear intact, on either side of the lateral inferior geniculate artery. Iliotibial band appears normal. Anterior structures: The quadriceps and patellar tendons appear intact. Patellar alignment is normal. No femoral trochlear dysplasia or ventral trochlear prominence. No edema in the infrapatellar fat pad. 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 Small osteochondral lesions are likely present in within a portion of lateral femoral condyle. Joint space: There is small to moderate knee joint fluid. No gross loose body. Lobulated popliteal cyst measures 2.8 x 2.5 x 6.1 cm in size is seen. Normal appearing synovial plicae are incidentally noted. IMPRESSION: 1. Findings suggestive of chronic ACL rupture. PCL is intact. 2. Suggestion of chronic complex tear involving the entire medial meniscus versus prior partial medial meniscectomy. No evidence of focal lateral meniscal tear. 3. Low-grade proximal MCL sprain and very low-grade MCL sprain. 4. Moderate to severe tricompartmental osteophyte is most prominent in the medial femorotibial compartment. Moderate amount of joint effusion and popliteal cyst as above. Dictated by: Armani David M.D. on 07/30/2019 at 16:27 Approved by: Armani David M.D. on 07/30/2019 at 16:33
== END ==
PROVIDERS: PCP Family Medicine; Visit Provider Orthopaedic Surgery
DX: M17.12 Unilateral primary osteoarthritis, left knee (principal); S83.412A Sprain of medial collateral ligament of left knee, initial encounter; M71.22 Synovial cyst of popliteal space [Baker], left knee; M25.462 Effusion, left knee
CPT/HCPCS: 73721

== ENCOUNTER 2019-08-26 11:14 | Inpatient (IN) | payer MEDICARE, OTHER, SELFPAY ==
[2019-01-11 18:00] VITALS: BMI 30.7
[2019-08-12 09:50] VITALS: BMI 30.7
[2019-08-26] VITALS (19 sets, daily range): BP systolic 121–183; BP diastolic 49–77; PULSE 50–67; RESP 9–19; TEMP 35.6–36.6; O2SAT 92–98; BMI 30.7
--- NOTE | 2019-08-26 11:50 | DI.RAD.S_ITS ---
PROCEDURE: XR KNEE LT 1TO2V INDICATIONS: post op films TECHNIQUE: 2 view(s) of the knee acquired. COMPARISON: Left knee radiographs 01/21/2019. [facility], CR, XR KNEE RT 1TO2V, 01/11/2019, 14:27. FINDINGS: Bones: Patient is status post knee joint arthroplasty. Hardware components are in expected positions. Visualized bony structures are intact. Soft tissues: Overlying postoperative changes are noted. A surgical drain with the tip in the suprapatellar space. Vascular calcifications. IMPRESSION: Satisfactory appearance of the left total knee arthroplasty. Dictated by: Daniel Pires M.D. on 08/26/2019 at 17:37 Approved by: Daniel Pires M.D. on 08/26/2019 at 17:38
[2019-08-26] MEDS: ACETAMINOPHEN 325 MG TABLET 975 MG PO (12:28)
[2019-08-26] MEDS: PREGABALIN 75 MG CAPSULE PO (12:30)
[2019-08-26] MEDS: LACTATED RINGERS 1,000 ML 42 ML IV ×2 (13:06→15:28)
[2019-08-26] MEDS: VANCOMYCIN 1,000 MG/200 ML PIGGYBACK 200 MG IV (13:55)
--- NOTE | 2019-08-26 14:23 | PM.PREOP ---
Pre-operative Note Interval Note History & Physical reviewed/Exam performed by Physician: Yes Changes to H&P: No
--- NOTE | 2019-08-26 14:23 | PM.OP.1 ---
Operative Date/Time/Diagnoses Date of procedure: 08/26/19 Time of procedure: 14:35 Pre-op diagnosis: left knee OA Post-op diagnosis: same Procedure & Clinicians Procedure: Left total knee arthroplasty Same procedure as scheduled: Yes Indications: The patient has had progressively worsening left knee pain with radiographic changes consistent with arthritis. Non-operative management has failed and the patient has requested total knee replacement. The risks, benefits and alternatives to surgery were discussed with the patient prior to proceeding. Risks discussed included, but were not limited to, failure to relieve pain, stiffness, infection, nerve damage, deep venous thrombosis, pulmonary embolism, stroke, coma, heart attack, permanent paralysis and , as well as the potential need for eventual revision of the prosthetic. Surgeon: Abby Haji Processing Mgr: Saranya Lamar Anesthesia Type: Spinal Operative Notes Findings: Severe left knee osteoarthritis, good stability Closure Type: primary Specimen(s): none sent Prosthetic devices, grafts, tissues, transplants, or devices: [employer] BCS 2 size 4 femur, size 2 tibia, size 2 +9 poly, 35 x 9 mm patella Applied: drain(s) Estimated Blood Loss (mL): 250 Blood products transfused: none Tourniquet time (min): 71 Procedure in detail: The patient was seen in the pre-operative area, where the patient identified the left knee as the operative site and this was marked with my initials. The patient received pre-operative antibiotics, and was taken to the operating room and placed on the operative table in the supine position. After satisfactory anesthesia, a full time paramedic out was performed. The left leg was encircled with a tourniquet about the proximal thigh, and the leg was prepared from the toes to the tourniquet with ChloroPrep in the usual fashion and draped through sterile drapes. The leg was elevated and exsanguinated with Eschmark bandage and the tourniquet inflated to [250] mmHg pressure. The knee was approached through an approximately 18 cm incision centered over the patella and carried into the knee through a medial parapatellar arthrotomy. A portion of the medial and lateral meniscus was resected. Soft tissue was carefully mobilized around the patella the patella was measured with a caliper. Bone was resected from the patella and the patellar height was reconstituted with up an appropriate sized patellar component. A cover was then placed on the patella. A small amount of additional medial and lateral meniscus was resected. The visionare guide fit well to the distal femur. It looked like an appropriate distal femoral cut and the cut was made without difficulty. The rotation was assessed and the appropriate size femoral guide was placed on the distal femur and finishing cuts were made. There was no evidence of notching. The anterior, posterior and chamfer cuts were then made. The posterior osteophytes and soft tissues were then removed. The posterior capsule was injected with part of a mixture of 60 ml 0.25% Marcaine mixed with 20 ml Exparel for post operative pain control. The remainder of this mixture was injected into the capsule and subcutaneous tissues during cement curing. The tibia was prepared and the visionaire guide fit well to the distal tibia. The rotation was assessed. The patient was placed in extension residual medial and lateral meniscus as well as any residual bone was carefully resected. [No] additional tibia was resected. Hemostasis was achieved especially posteriorly. Additional local was injected into the posterior capsule. The extension gap was assessed and additional releases for gap balancing were performed as necessary. It was checked with the gap shorthand reporter. The femoral component was trial was placed and the notch was finished. Trial tibial and femoral components were then placed and the knee placed through a range of motion. Range of motion was [0-130], with good stability throughout the range. The trials were then removed, and the tibia was finished. The bone was prepared with pulsatile lavage, and dried with a sponge. Cement was applied and the final prosthetics placed. Excess cement was removed during and after cement curing. A brief Betadine soak was performed. After confirming there was no extruded cement posteriorly, the final tibial insert was placed. The knee was copiously irrigated and the tourniquet deflated. Hemostasis was obtained with the Bovie cautery. A drain was placed and brought out superolaterally. The capsule was closed with interrupted Vicryl. A 2nd dose of Exparel was placed intracapsularly. The subcutaneous layer was closed with barbed sutures, and the skin with a running 3-0 V-Lock suture and Surgical glue. An Aquacel Ag dressing was applied and the patient was taken to recovery having tolerated the procedure well. Complications: none Post-operative Condition: stable Disposition: Acute Care Plan for aftercare: The patient will be maintained on a standard total knee replacement protocol with weight bearing as tolerated. The patient will receive aspirin and sequential compression devices for DVT prophylaxis. The patient will be discharged home when safe for the home environment.
[2019-08-26] MEDS: GENTAMICIN 200 MG in SODIUM CHLORIDE 0.9% 100 ML 105 ML IV (15:08)
[2019-08-26] MEDS: TRANEXAMIC ACID 1,000 MG VIAL 1000 MG INJ ×2 (15:14→15:15)
[2019-08-26] MEDS: BUPIVACAINE 0.25% W/ EPI 30 ML VIAL 60 ML INJ (15:15)
[2019-08-26] MEDS: BUPIVACAINE LIPOSOME 266 MG/20 ML VIAL INJ (15:16)
--- NOTE | 2019-08-26 19:37 | PC.NURSE ---
Pt arrived from PACU at approx 1835. A/O. Able to slightly wiggle toes, reports sensation of touch. Drsg with luis danile wrap c/d/i. H/V compressed and clamped, clamp removed at 1850. No castro. Pt reports hungry; snacks provided. Oriented to room and call system. Spouse brought in personal walker. Student nurse participating with assessments and medication administrations. All care performed by student has been under supervision of this insurance underwriter sales.
[2019-08-26] MEDS: ROSUVASTATIN 10 MG TABLET 20 MG PO (19:46)
[2019-08-26] MEDS: LACTATED RINGERS 1,000 ML 125 ML IV (19:48)
[2019-08-26] MEDS: CARVEDILOL 12.5 MG TABLET 25 MG PO (21:54)
[2019-08-26] MEDS: CHOLECALCIFEROL (VITAMIN D3) 1,000 UNIT TABLET 1000 UNIT PO (21:54)
[2019-08-26] MEDS: ASPIRIN EC 81 MG TABLET PO (21:54)
[2019-08-26] MEDS: DOCUSATE 100 MG CAPSULE PO (21:54)
[2019-08-27] VITALS (7 sets, daily range): BP systolic 120–142; BP diastolic 43–60; PULSE 58–77; RESP 16–18; TEMP 36.2–36.7; O2SAT 92–99
[2019-08-27] MEDS: LACTATED RINGERS 1,000 ML 125 ML IV (03:03)
[2019-08-27] MEDS: HYDROCODONE/ACET 5/325 TABLET 2 TAB PO ×4 (03:07→20:05)
[2019-08-27] MEDS: VANCOMYCIN 1,000 MG/200 ML PIGGYBACK 200 MG IV (04:32)
[2019-08-27 05:58] LABS: Hematocrit 38.7 % (36-46); Hemoglobin 12.9 g/dL (12.0-16.0)
[2019-08-27] MEDS: HYDROCODONE/ACET 5/325 TABLET 1 TAB PO (06:14)
--- NOTE | 2019-08-27 08:16 | PC.NURSE ---
Addendum entered by Mirian Del Cid R.N. 08/27/19 10:00: Pt just given 2 vicodin for complaints of 8/10 pain. Up in chair and visiting with at this time. Original Note: Pt is A&Ox3, given 2 Vicodin at 0600 and states that is has been a bit helpful but she is starting to hurt again. Dressing to l.knee is aquacel with luis daniel wrap. CMS wnl and ppx2. Eating breakfast at bedside now.
[2019-08-27] MEDS: ASPIRIN EC 81 MG TABLET PO ×2 (08:34→20:05)
[2019-08-27] MEDS: IRBESARTAN 150 MG TABLET PO (08:34)
[2019-08-27] MEDS: IBUPROFEN 600 MG TABLET PO ×2 (08:35→20:06)
[2019-08-27] MEDS: DOCUSATE 100 MG CAPSULE PO ×2 (08:36→20:06)
[2019-08-27] MEDS: ASCORBIC ACID 500 MG TABLET PO (08:36)
[2019-08-27] MEDS: TORSEMIDE 10 MG TABLET 20 MG PO (08:36)
[2019-08-27] MEDS: CARVEDILOL 12.5 MG TABLET 25 MG PO ×2 (08:36→20:03)
[2019-08-27] MEDS: INSULIN GLARGINE 100 UNIT/ML 3ML PEN 50 UNIT SUBCUT (08:39)
[2019-08-27] MEDS: dilTIAZem CD 180 MG CAP PO (08:41)
--- NOTE | 2019-08-27 08:43 | P.PN_ITS ---
Subjective Subjective Date Patient Seen: 08/27/19 Time Patient Seen: 08:43 Interval history: POD #1 s/p left TKA with Dr. Haji. Patients pain is well controlled with [place]. She has been standing up in her room to use the commode. She has not worked with PT yet. Drain output last night 50 ml. Exam Vital Signs (past 8 hours): - 08/27/19 04:11 08/27/19 05:20 08/27/19 08:00 Temperature 97.1 F L 97.7 F Pulse Rate 77 67 Respiratory Rate 16 16 16 Blood Pressure 134/57 L 142/60 H Pulse Oximetry 99 94 93 Oxygen Delivery Method Nasal Cannula Oxygen Flow Rate 0 Narrative Exam Narrative: Patient is sitting up in bed eating breakfast. She is alert orient x3. Calves are soft, compressible, nontender bilaterally. SCDs in place. Sensation intact to light touch throughout bilateral lower extremities. Pulses are symmetrical. Objective Labs Result Diagrams: 08/27/19 05:13 Labs: Laboratory Results - last 24 hr 08/27/19 05:13 Hgb 12.9 Hct 38.7 Assessment & Plan Post-op Postoperative Procedures: Procedures Operation Date: 08/26/19 13:45 Actual Procedures Side Surgeon p Total Knee Arthroplasty Left Abby Haji MD Patient will mobilize with physical therapy today. Remove drain prior to discharge. Continue ASA for DVT prophylaxis. Continue [place] for pain. She states she has some of this at home already. Patient may discharge home today if mobilizing safely, and pain adequately controlled.
--- NOTE | 2019-08-27 10:34 | CM.IDA ---
Initial DCP Assessment Note: Pt is a 78 yo female, resident of [facility]. Pt POD#1 from knee surgery w/ Dr Haji. PCP: Dr Jorge Hernandez payer: Medicare/[facility] Met w/pt, explained SW role. Pt sitting up and finishing breakfast. Pt states she recovered well from her first knee surgery on her rt knee and is eager to return home today, no barriers expected to safe return home w/friends and family to assist. DC order in place pending PT clears for return home. SIENA Woodson Discharge Planning/Care Management CM Discharge Assessment Start: 08/27/19 10:33 Freq: Status: Active Protocol: Document 08/27/19 10:33 HIRAM (Rec: 08/27/19 10:34 HIRAM [id number]) Discharge Planning Assessment Assigned Sheet Metal Duct Installer SIENA Sifuentes DPOA/Assigned Designee Name Eric Desaimens, spouse Contact Information [phone] Advance Directives? Yes Advance Directives on File No History Provided By Patient,Medical Record Prior Living Arrangements House Household Members spouse Type of transporation used prior to Drives own vehicle admit Independent with ADL's Yes Is patient alert and oriented? Yes Patient/Family Preference OP PT Therapy Discharge Plan Home Transportation Arrangement Spouse Referrals Initiated None needed Review Status In Process
--- NOTE | 2019-08-27 14:05 | PT.IPTN ---
Current Diagnoses Unilateral primary osteoarthritis, left knee (08/26/19) Surgery Performed Operation Date: 08/26/19 13:45 Actual Procedures p Total Knee Arthroplasty(Left) - Abby Haji MD Physical Therapy Treatment Note M2 PT-IP Current Condition Start: 08/27/19 08:22 Freq: NEEDED Status: Active Protocol: Document 08/27/19 09:20 HH (Rec: 08/27/19 11:11 HH [id number]) Physical Therapy Current Condition Current Condition Evaluation Date 08/27/19 Treatment Diagnosis L TKA, difficulty in walking. Onset Date 08/26/19 Weight Bearing Status Weight Bearing Status Weight Bear as Tolerated M3 PT-IP Subjective Start: 08/27/19 08:22 Freq: NEEDED Status: Active Protocol: Document 08/27/19 14:05 SP (Rec: 08/27/19 14:29 SP [id number]) Subjective Physical Therapy Visit Type Type Treatment Note Visit Start Time 13:35 Visit Stop Time 14:05 Total Visit Minutes 30 Notes Pt's attended full treatment session. Pt was out walking with nursing when ELECTRONIC TEST TECHNICIAN arrived and agreed to work on 4ww and stair manangment. Number of ELECTRONIC TEST TECHNICIAN Visits 1 Physical Therapy Visit Comments Patient Comments Pt agreeable to mobilize with PT Patient Goals to return home with Therapy Pain Assessment Pain When Pain Assessed During Mobility Pain Present Pain Present Pain Reported M4 PT-IP Mobility and Gait Start: 08/27/19 08:22 Freq: NEEDED Status: Active Protocol: Document 08/27/19 14:05 SP (Rec: 08/27/19 14:29 SP [id number]) PT-Bed Mobility Assessment Supine to Sit Supine to Sit Contact Guard Assistance Scooting Scooting to Edge of Bed Standby Assistance PT-Transfer Assessment Sit to and From Stand Sit to and from Stand Contact Guard Assistance,Use of Upper Extremities Equipment Transfer Assistive Device Gait Belt,4 Wheeled Walker Orthotic/Prosthetic Devices or Brace: No Transfers Transfer Destination Chair Transfer Technique Stand Step Pivot Transfer Ability Level of Assist Contact Guard Assistance,Use of Upper Extremities Comments Mobility Comments Educated patient safety with 4ww brake locking awareness pre/ post standing to reduce risk for falls, good mgt post cues. SBA for all transfers. She has good safety awareness with proper eccentric lowering from stand to sit. Call light and table palced within reach . Good LE positioning during transfers. Gait Assessment Gait Gait Assistance Required: Standby Assistance,Contact Guard Assist Distance (Feet) 200 Able to Maintain Weight Bearing Status Yes During Gait Assistive Devices Assistive Device Gait Belt,4 Wheeled Walker Orthotic/Prosthetic Devices or Brace: No Gait Deviations General Gait Pattern Antalgic,Decreased Stride Length,Decreased Feet Clearance,Lateral Trunk Lean Factors Limiting Gait Function Factors Limiting Gait Function Decreased Strength,Limited Range of Motion,Pain Comments Gait Comments Pt was able to ambulate room to stairs (200ft) before a rest. See Mobility comments. Stair Climbing Assessment Evaluation Level of Assist On Stairs Contact Guard Assistance Devices Stair Climbing Assistive Devices Forearm Crutches,Left Railing Technique/Endurance Stair Climbing Direction Ascend and Descend Stair Climbing Technique Step to Step Number of Steps Climbed 3 Stair Climbing Set # Repetitions (reps) 2 Comments Stair Climbing Comments Pt requested education on LE stair management patterning, good sequencing post. Pt used L HR and forearm crutch RUE as would do at home with no LOB or deviations. present observation only. Use fo gait belt used for safety. M5 PT-IP Objective Assessments Start: 08/27/19 08:22 Freq: NEEDED Status: Active Protocol: Document 08/27/19 09:20 (Rec: 08/27/19 11:11 [id number]) Orientation Orientation/Cognition Level of Alertness Alert Orientation Name,Age,Birthday,Month,Date, Year,Day of Week,Place, Situation Language Function Ability No Deficits Noted Safety Awareness Understands Safety Issues Memory Description No Deficits Noted Gross Range of Motion Upper Extremity ROM Assessment Within Functional Limits Lower Extremity ROM Assessment Left Impaired Impairments L knee AROM 5 to 95 degreees Strength Upper Extremity Strength Assessment Within Functional Limits Lower Extremity Strength Assessment Left Impaired Knee 4/5 Coordination Assessment Gross Coordination Gross Coordination WNL Sensation Assessment Sensation Gross Sensation WNL M6 PT-IP Treatment Start: 08/27/19 08:22 Freq: NEEDED Status: Active Protocol: Document 08/27/19 09:20 (Rec: 08/27/19 11:11 [email or web address]) Physical Therapy Treatment Exercises Exercises Ankle Pumps,Gluteal Sets,Quad Sets,Heel Slides Education Education Provided Precautions,Weight Bearing Status,Post-Op Packet,Safety M7 PT-IP Assessment and Plan Start: 08/27/19 08:22 Freq: NEEDED Status: Active Protocol: Document 08/27/19 14:05 SP (Rec: 08/27/19 14:29 SP [id number]) PT Summary Assessment and Plan Potential Rehabilitation Potential Excellent Status of Condition at Evaluation Stable Summary Impairments Pain,ROM,Strength,Balance,Bed Mobility,Transfers,Gait, Activity Tolerance Assessment Summary Pt is a low complexity who is s/p L TKA from yesterday. Pt overall performed very well during transfers and amb with 4WW. Pt only has 4 WW to negotiate uneven surface for her driveway and a total of 3 YULIYA to entrance which she has completed today with CGA and cuing as needed for sequencing . Goals Bed Mobility Goal Standby Assistance Transfer Goal Standby Assistance,Four Wheeled Walker Gait Goal Standby Assistance,Four Wheel Walker Gait Distance 300 Other Goals 2 YULIYA with L rail SBA 1 YULIYA without rail SBA Days to Meet Goals 3 Frequency of Treatment Frequency Of Treatment Twice a Day Treatment Plan Physical Therapy Treatment Plan Bed Mobility Training,Transfer Training,Gait Training, Therapeutic Exercise,Balance Retraining,Post Op Education, Discharge Planning,Hot or Cold Pack,Neuromuscular Re-ed Other Recommendations and Next Treatment bed mob with gait belt on LLE Focus 4ww training as mariama stair climbing if possible Recommendations To Nursing Amount of Assist Needed Standby Assistance Discharge Recommendations PT Discharge Recommendations Home with Assistance, Outpatient PT Equipment Needed for Home Before FWW if pt is unstable to use Discharge 4WW
[2019-08-27] MEDS: ROSUVASTATIN 10 MG TABLET 20 MG PO (17:25)
[2019-08-27] MEDS: CHOLECALCIFEROL (VITAMIN D3) 1,000 UNIT TABLET 1000 UNIT PO (20:05)
[2019-08-28] VITALS: BP 128/55; PULSE 62; RESP 19; TEMP 36.6; O2SAT 97
[2019-08-28] MEDS: HYDROCODONE/ACET 5/325 TABLET 2 TAB PO (01:56)
[2019-08-28 04:00] VITALS: BP 149/59; PULSE 66; RESP 17; TEMP 36.6; O2SAT 93
[2019-08-28] MEDS: IBUPROFEN 600 MG TABLET PO (04:35)
[2019-08-28 08:00] VITALS: BP 152/87; PULSE 63; RESP 17; TEMP 37.1; O2SAT 97
[2019-08-28] MEDS: ASCORBIC ACID 500 MG TABLET PO (08:28)
[2019-08-28] MEDS: HYDROCODONE/ACET 5/325 TABLET 1 TAB PO ×2 (08:29→12:15)
[2019-08-28] MEDS: CARVEDILOL 12.5 MG TABLET 25 MG PO (08:29)
[2019-08-28] MEDS: INSULIN GLARGINE 100 UNIT/ML 3ML PEN 50 UNIT SUBCUT (08:29)
[2019-08-28] MEDS: IRBESARTAN 150 MG TABLET PO (08:29)
[2019-08-28] MEDS: TORSEMIDE 10 MG TABLET 20 MG PO (08:29)
[2019-08-28] MEDS: dilTIAZem CD 180 MG CAP PO (08:29)
[2019-08-28] MEDS: DOCUSATE 100 MG CAPSULE PO (08:29)
[2019-08-28] MEDS: ASPIRIN EC 81 MG TABLET PO (08:29)
--- NOTE | 2019-08-28 10:49 | PC.NURSE ---
JOSE MIGUELB by Chantal ESQUEDA to Dc hemovac drain. DC'd intact, and gauze with tegaderm placed to site. Patient tolerated well.
--- NOTE | 2019-08-28 11:08 | P.DS_ITS ---
History of Present Illness History of Present Illness Date Patient Seen: 08/28/19 Time Patient Seen: 11:00 Chief complaint: [id number] Narrative: The patient has had progressively worsening left knee pain with radiographic changes consistent with arthritis. Non-operative management has failed and the patient has requested total knee replacement. The risks, benefits and alternatives to surgery were discussed with the patient prior to proceeding. Risks discussed included, but were not limited to, failure to relieve pain, stiffness, infection, nerve damage, deep venous thrombosis, pulmonary embolism, stroke, coma, heart attack, permanent paralysis and , as well as the potential need for eventual revision of the prosthetic. Post op day 2 s/p left total knee arthroplasty with Dr. Haji. No acute events overnight. Patient complains of issue with chair, causing her to hit her left knee. No other complaints. Patient mobilizing with PT. Pain controlled with no rco. Discharge Providers Provider Date of admission: 08/26/19 11:14 Discharge Date: 08/28/19 Primary care physician: Jorge Hernandez MD Consults: 08/26/19 11:50 Consult to Anesthesiology Routine Comment: Consulting Provider: Anesthesiologist Reason for consultation: Regional block for post operative pain control 08/26/19 19:24 Consult to Discharge Planning Routine Comment: Consult to Physical Therapy Evaluate & Treat Comment: Physician Instructions: postop TKA protocol Consult to Respiratory Therapy Evaluate & Treat Comment: Physician Instructions: Evaluate and treat Discharge provider: Evan Martinez PA-C Summary Hospital Course Discharge Diagnosis: s/p total left knee arthroplasty malignant neoplasm of female breast diverticulosis of large intestine without hemorrhage polyp of colon primary open angle glaucoma, mild stage mixed hyperlipidemia type 2 diabetes mellitus without complication recurrent major depressive disorder, in partial remission status post coronary artery bypass graft essential hypertension coronary artery disease involving coronary bypass graft of [place] heart without angina pectoris primary osteoarthritis of both knees osteopenia iron deficiency anemia Hospital Course: Patient admitted for a total left knee arthroplasty with Dr. Haji. Hospital course was unremarkable. Post op day 2 patient was ready for discharge home. Patient has norco at home. Given prescription for vistaril. Patient eating and voiding without difficulty or assistance prior to discharge. Patient was mobilizing with physical therapy prior to discharge. Patient hast outpatient PT scheduled. Dressing was CDI. ASA 81mg bid for DVT prophylaxis. Exam Vital Signs (past 8 hours): - 08/28/19 04:00 08/28/19 08:00 Temperature 97.8 F 98.7 F Pulse Rate 66 63 Respiratory Rate 17 17 Blood Pressure 149/59 H 152/87 H Pulse Oximetry 93 97 Oxygen Delivery Method Nasal Cannula Oxygen Flow Rate 1 Narrative Exam Narrative: 78 year old female laying comfortably in bed, in no apparent distress. A&Ox3. Aquacell dressing CDI on Right knee. Patient able to actively dorsiflex/plantar flex. Sensation to light touch grossly intact in lower extrem ities bilaterally. Dorsalis pedis 2+ b/l. Cap refil <2s LE b/l. Calves warm, soft, compressible, nttp. Objective Labs Result Diagrams: 08/27/19 05:13 Discharge Plan Discharge Plan Patient Disposition: Home Discharge Med Rec/Prescriptions Prescriptions: New aspirin 81 mg Tablet,Delayed Release (Dr/Ec) 81 mg PO BID Qty: 60 RF: 0 hydroxyzine pamoate [Vistaril] 25 mg capsule 25 mg PO BID PRN (Reason: muscle spasm) Qty: 30 RF: 0 Continued cholecalciferol (vitamin D3) [Vitamin D3] 1,000 unit Capsule 1,000 unit PO BEDTIME Qty: 0 RF: 0 cyanocobalamin (vitamin B-12) 1,000 MCG tablet extended release 5,000 mcg PO DAILY Qty: 0 RF: 0 [TRUET GLUCOSE STRIPS] 1 strip NR QDAY Qty: 100 RF: 5 ascorbic acid (vitamin C) 500 MG tablet 500 mg PO QDAY Qty: 0 RF: 0 Lantus U-100 Insulin 100 unit/mL Solution 50 unit SUBCUT QAM RF: 0 diltiazem HCl 180 mg Capsule,Extended Release 24 Hr 180 mg PO DAILY RF: 0 irbesartan 75 mg Tablet 150 mg PO DAILY RF: 0 ibuprofen 600 mg Tablet 600 mg PO BID PRN (Reason: Pain) RF: 0 potassium gluconate 595 mg (99 mg) Tablet 595 mg PO DAILY RF: 0 carvedilol [Coreg] 12.5 MG tablet 25 mg PO BID RF: 0 ezetimibe [Zetia] 10 MG tablet 10 mg PO BEDTIME RF: 0 Victoza 2-Reuben 0.6 MG/0.1 ML pen injector 1.2 mg SQ QPM RF: 0 torsemide 20 mg Tablet 20 mg PO DAILY RF: 0 rosuvastatin [Crestor] 20 mg Tablet 20 mg PO QPM RF: 0 hydrocodone-acetaminophen 5-325 mg Tablet 1 tab PO BEDTIME PRN (Reason: Pain) RF: 0 Discontinued aspirin 81 mg tablet,delayed release (DR/EC) 81 mg PO DAILY RF: 0 Follow up/Referrals: Abby Haji MD [Physician] - Jorge Hernandez MD [Primary Care Provider] - Provider Discharge Instructions Activity: [facility] protocol Cold/Heat Therapy: As needed Skin/Wound/Dressing Care Report to your healthcare provider any signs of infection, such as:: chills, fever and increased pain Dressing: Leave in place until appointment Visit Report/Discharge Packet Instructions: DI for Knee Replacement, Hydroxyzine Discharge Data Primary Care Provider: Jorge Hernandez Discharges patient from system. Discharge Date/Time: 08/28/19 14:36
[2019-08-28 12:00] VITALS: BP 153/58; PULSE 56; RESP 16; TEMP 36.6; O2SAT 94
--- NOTE | 2019-08-28 13:15 | PC.NURSE ---
Patient wants to get dressed and ready for apple picking supervisor scheduled to [facility] today. Assisted patient with help of Rita MELENDEZ to gather belongings and help patient get dressed. Patient states she thought she had a bra here, no bra noted in her clothing bag. Patient then began looking for her credit cards and lipstick in her purse. Patient states she had another visa card that she is missing, she is not sure if her took it or not. Patient confirmed to have 3 VISA cards in her wallet at this time, visualized by this RN and Rita MELENDEZ. Patient dressed and assisted to sit in chair, chair alarm on, waiting for apple picking supervisor by transport. Midline to CASE remains intact. Call light within reach.
--- NOTE | 2019-08-28 14:10 | PT.IPTN ---
Current Diagnoses Unilateral primary osteoarthritis, left knee (08/26/19) Surgery Performed Operation Date: 08/26/19 13:45 Actual Procedures p Total Knee Arthroplasty(Left) - Abby Haji MD Physical Therapy Treatment Note M2 PT-IP Current Condition Start: 08/27/19 08:22 Freq: NEEDED Status: Active Protocol: Document 08/27/19 09:20 HH (Rec: 08/27/19 11:11 HH [id number]) Physical Therapy Current Condition Current Condition Evaluation Date 08/27/19 Treatment Diagnosis L TKA, difficulty in walking. Onset Date 08/26/19 Weight Bearing Status Weight Bearing Status Weight Bear as Tolerated M3 PT-IP Subjective Start: 08/27/19 08:22 Freq: NEEDED Status: Active Protocol: Document 08/28/19 13:52 AW (Rec: 08/28/19 14:10 AW [id number]) Subjective Physical Therapy Visit Type Type Treatment Note Visit Start Time 11:12 Visit Stop Time 11:35 Total Visit Minutes 23 Notes Pt's present throughout session Physical Therapy Visit Comments Patient Comments Pt happy to mobilize with PT Patient Goals to return home with Therapy Pain Assessment Pain When Pain Assessed During Mobility Pain Present Pain Present Pain Reported Location Left Knee Intensity 7 Scale Used Numeric (1 - 10) Description Aching Pain Management Techniques Apply Cold,Modification of Treatment,Timing of Activity with Medications M4 PT-IP Mobility and Gait Start: 08/27/19 08:22 Freq: NEEDED Status: Active Protocol: Document 08/28/19 13:52 AW (Rec: 08/28/19 14:10 AW [id number]) PT-Transfer Assessment Sit to and From Stand Sit to and from Stand Standby Assistance,Use of Upper Extremities Equipment Transfer Assistive Device Gait Belt,4 Wheeled Walker Orthotic/Prosthetic Devices or Brace: No Transfers Transfer Destination Chair Transfer Technique pt ambulated with 4WW Transfer Ability Level of Assist Standby Assistance,Use of Upper Extremities Comments Mobility Comments Pt demonstrated safe use of 4WW with no need for verbal cues. SBA for all transfers. Pt has good safety awareness, navigating obstacles and pathfinding with ease. Gait Assessment Gait Gait Assistance Required: Standby Assistance Distance (Feet) 200 Able to Maintain Weight Bearing Status Yes During Gait Assistive Devices Assistive Device Gait Belt,4 Wheeled Walker Orthotic/Prosthetic Devices or Brace: No Gait Deviations General Gait Pattern Antalgic,Decreased Stride Length,Decreased Feet Clearance,Lateral Trunk Lean Factors Limiting Gait Function Factors Limiting Gait Function Decreased Strength,Limited Range of Motion,Pain Comments Gait Comments Pt ambulated 200 ft x 2 using 4WW SBA. Gait is notable for vaulting on the LLE which is likely a learned compensation to manage pain/unsteadiness preoperatively. Stair Climbing Assessment Evaluation Level of Assist On Stairs Standby Assistance,Contact Guard Assistance Devices Stair Climbing Assistive Devices Forearm Crutches,Left Railing Technique/Endurance Stair Climbing Direction Ascend and Descend Stair Climbing Technique Step to Step Number of Steps Climbed 3 Stair Climbing Set # Repetitions (reps) 1 Comments Stair Climbing Comments Pt demonstrated good attention to sequencing stair climbing using left HR and forearm crutch in RUE. She also managed up and down the curb using crutch in RUE and [employer] on the left side. Spouse was present and able to provide assistance. M5 PT-IP Objective Assessments Start: 08/27/19 08:22 Freq: NEEDED Status: Active Protocol: Document 08/27/19 09:20 (Rec: 08/27/19 11:11 [id number]) Orientation Orientation/Cognition Level of Alertness Alert Orientation Name,Age,Birthday,Month,Date, Year,Day of Week,Place, Situation Language Function Ability No Deficits Noted Safety Awareness Understands Safety Issues Memory Description No Deficits Noted Gross Range of Motion Upper Extremity ROM Assessment Within Functional Limits Lower Extremity ROM Assessment Left Impaired Impairments L knee AROM 5 to 95 degreees Strength Upper Extremity Strength Assessment Within Functional Limits Lower Extremity Strength Assessment Left Impaired Knee 4/5 Coordination Assessment Gross Coordination Gross Coordination WNL Sensation Assessment Sensation Gross Sensation WNL M6 PT-IP Treatment Start: 08/27/19 08:22 Freq: NEEDED Status: Active Protocol: Document 08/28/19 13:52 AW (Rec: 08/28/19 14:10 AW [id number]) Physical Therapy Treatment Exercises Exercises Ankle Pumps,Gluteal Sets,Quad Sets,Heel Slides Education Education Provided Safety Other Treatments Other Treatment Performed Pt instructed in seated heel slides. Educated pt on exercise dosing and to continue performing post-op exercises 2-3 times daily until first outpatient PT appointment M7 PT-IP Assessment and Plan Start: 08/27/19 08:22 Freq: NEEDED Status: Active Protocol: Document 08/28/19 13:52 AW (Rec: 08/28/19 14:10 AW [id number]) PT Summary Assessment and Plan Potential Rehabilitation Potential Excellent Status of Condition at Evaluation Stable Summary Impairments Pain,ROM,Strength,Balance,Bed Mobility,Transfers,Gait, Activity Tolerance Assessment Summary Pt is ambulating safely with 4WW which is what she reports using at home. She required no more than CGA[employer] for stairs. She is safe to discharge to her home environment when medically cleared. Goals Bed Mobility Goal Standby Assistance Transfer Goal Standby Assistance,Four Wheeled Walker Gait Goal Standby Assistance,Four Wheel Walker Gait Distance 300 Other Goals 2 YULIYA with L rail SBA 1 YULIYA without rail SBA Days to Meet Goals 3 Frequency of Treatment Frequency Of Treatment Twice a Day Treatment Plan Physical Therapy Treatment Plan Bed Mobility Training,Transfer Training,Gait Training, Therapeutic Exercise,Balance Retraining,Post Op Education, Discharge Planning,Hot or Cold Pack,Neuromuscular Re-ed Recommendations To Nursing Amount of Assist Needed Standby Assistance Discharge Recommendations PT Discharge Recommendations Home with Assistance, Outpatient PT
== END 2019-08-28 14:36 | disposition home or self-care (01) | DRG 470 ==
PROVIDERS: Admitting Provider Orthopaedic Surgery; PCP Family Medicine; Visit Provider Orthopaedic Surgery
PROC: 0SRD0JZ Replacement of Left Knee Joint with Synthetic Substitute, Open Approach (ICD-10-PCS; CPT 27447; principal; 2019-08-26 13:45)
DX: M17.12 Unilateral primary osteoarthritis, left knee (principal); I25.810 Atherosclerosis of coronary artery bypass graft(s) without angina pectoris; I10 Essential (primary) hypertension; E78.5 Hyperlipidemia, unspecified; E11.9 Type 2 diabetes mellitus without complications; Z79.4 Long term (current) use of insulin; Z96.651 Presence of right artificial knee joint
CPT/HCPCS: 36415; 73560; 82962; 85014; 85018; 97116; 97161; 97530; C1776; C9290; J1100; J2250; J2274; J2405; J2704; J3010

== ENCOUNTER 2019-09-24 18:07 | Emergency (ER) | payer MEDICARE, OTHER, SELFPAY ==
[2019-08-26 19:24] VITALS: BMI 30.7
[2019-09-24 18:10] VITALS: BP 202/78; PULSE 75; RESP 16; TEMP 37; O2SAT 98; BMI 30.7
--- NOTE | 2019-09-24 18:41 | DI.US.S_ITS ---
PROCEDURE: US PERIPH VENOUS LOW EXTREM LT INDICATIONS: EDEMA POST TKA 08-26-19 TECHNIQUE: Real-time imaging, as well as color and pulse Doppler interrogation, were performed of the lower extremity deep veins from the inguinal ligament to the popliteal fossa. COMPARISON: None. FINDINGS: The common femoral, femoral and popliteal veins are normally compressible, and free of intraluminal thrombus. Color and pulse Doppler demonstrate normal phasic intraluminal flow. There is normal augmentation response to distal compression maneuver. 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 IMPRESSION: 1. Negative left lower extremity duplex ultrasound for DVT. 2. Lau's cyst Dictated by: Alessio Delgado M.D. on 09/24/2019 at 19:45 Approved by: Alessio Delgado M.D. on 09/24/2019 at 19:51
[2019-09-24 19:04] LABS: Add Manual Diff / Slide Review NO; Basophils Absolute Auto 100 /uL (0-100); Basophils Percent Auto 0.9 % (0-2); Eosinophils Absolute Auto 300 /uL (0-450); Eosinophils Percent Auto 3.9 % (2-4); Hemoglobin 12.7 g/dL (12.0-16.0); Lymphocytes Absolute Auto 1800 /uL (1100-4500); Lymphocytes Percent Auto 21.2 % (25-40); Mean Corpuscular HGB Conc 33.3 % (30-36); Mean Corpuscular Hemoglobin 29.4 PG (26-34); Mean Corpuscular Volume 88.1 fL (80-100); Monocytes Absolute Auto 600 /uL (0-900); Monocytes Percent Auto 7.2 % (3-14); Neutrophils Absolute Auto 5600 /uL (1500-7000); Neutrophils Percent Auto 66.8 % (50-75); Platelet Count 214 X10^3/uL (150-400); Red Blood Cell Count 4.32 X10^6/uL (4.0-5.2); Red Cell Distribution Width 14.7 % (11.6-14.8); White Blood Cell Count 8.4 X10^3/uL (4.5-11.0)
[2019-09-24 19:22] LABS: Alanine Aminotransferase 17 IU/L (<35); Albumin Globulin Ratio 1.7 (1.0-2.8); Alkaline Phosphatase 80 U/L (38-126); Aspartate Aminotransferase 26 IU/L (14-36); BUN Creatinine Ratio 31.4 (6-22); Bilirubin Total 0.4 mg/dL (0.2-1.3); Blood Urea Nitrogen 22 mg/dL (7-17); Calcium 9.2 mg/dL (8.4-10.2); Carbon Dioxide 31 mmol/L (22-32); Chloride 100 mmol/L (98-107); Estimated Glomerular Filt Rate > 60.0 mL/min (>60); Globulin 2.4 g/dL (1.7-4.1); Glucose 149 mg/dL (80-110); HEMOLYSIS < 15 (0-50); Potassium 3.5 mmol/L (3.4-5.1); Sodium 140 mmol/L (137-145); Total Protein 6.4 g/dL (6.3-8.2)
--- NOTE | 2019-09-24 19:29 | ED_ITS ---
HPI - Extremity Injury (Lower) <JOY Sullivan - Last Filed: 09/24/19 22:25> General Chief Complaint: Extremity Injury, Lower Stated Complaint: LEFT LEG SWELLING AND PAIN Time Seen by Provider: 09/24/19 18:22 Source: patient Mode of arrival: Ambulatory Limitations: no limitations History of Present Illness HPI Narrative: This is a 78 year female, former smoker, who presents to ED with left lower leg swelling and discomfort over 2 weeks. Patient had left knee surgery on 08/26/[address] Haji and is currently recuperating and getting rehabilitation with physical therapy. Patient reports physical therapist noticed increasing left lower extremity swelling and when she contacted Dr. Haji she was referred to emergency room for ultrasound test to rule out DVT. Patient denies history of DVT, on estrogen replacement, history of blood clots in the past. 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 Patient denies fever, chills, nausea or vomiting, redness to left lower leg. Patient has history of diabetes, hypertension and on multiple medications current and also takes torsemide. Related Data Home Medications Medication Instructions Recorded Confirmed cholecalciferol (vitamin D3) 1,000 unit PO BEDTIME #0 05/13/11 08/12/19 [Vitamin D3] cyanocobalamin (vitamin B-12) 5,000 mcg PO DAILY #0 08/16/16 08/12/19 ascorbic acid (vitamin C) 500 mg PO QDAY #0 03/21/17 08/12/19 Lantus U-100 Insulin 50 unit SUBCUT QAM 12/23/18 08/26/19 Victoza 2-Reuben 1.2 mg SQ QPM 12/23/18 08/26/19 carvedilol [Coreg] 25 mg PO BID 12/23/18 08/26/19 diltiazem HCl 180 mg PO DAILY 12/23/18 08/26/19 ezetimibe [Zetia] 10 mg PO BEDTIME 12/23/18 08/26/19 ibuprofen 600 mg PO BID PRN 12/23/18 08/26/19 irbesartan 150 mg PO DAILY 12/23/18 08/26/19 potassium gluconate 595 mg PO DAILY 12/23/18 08/26/19 hydrocodone-acetaminophen 1 tab PO BEDTIME PRN 08/12/19 08/26/19 rosuvastatin [Crestor] 20 mg PO QPM 08/12/19 08/26/19 torsemide 20 mg PO DAILY 08/12/19 08/26/19 Previous Rx's Medication Instructions Recorded [TRUET GLUCOSE STRIPS] 1 strip NR QDAY #100 11/19/16 aspirin 81 mg PO BID #60 tab 08/27/19 hydroxyzine pamoate [Vistaril] 25 mg PO BID PRN #30 cap 08/28/19 Allergies Allergy/AdvReac Type Severity Reaction Status Date / Time cefaclor [CEFACLOR] Allergy Intermediate RASH Verified 09/24/19 18:21 Cephalosporins Allergy Intermediate Rash, Verified 09/24/19 18:21 [CEPHALOSPORINS] Respiratory problems ciprofloxacin [From CIPRO] Allergy Intermediate RASH Verified 09/24/19 18:21 neomycin [NEOMYCIN] Allergy Intermediate RASH Verified 09/24/19 18:21 nitrofurantoin Allergy Intermediate RESPIRATORY Verified 09/24/19 18:21 [NITROFURANTOIN] PROBLEMS Quinolones [QUINOLONES] Allergy Intermediate Rash, Verified 09/24/19 18:21 Respiratory problems Sulfa (Sulfonamide Allergy Mild RASH, Verified 09/24/19 18:21 Antibiotics) HEADACHES [SULFA (SULFONAMIDE ANTIBIOTICS)] metformin [METFORMIN] AdvReac Severe Constant Verified 09/24/19 18:21 diarrhea oxycodone AdvReac Severe Hallucinations, Verified 09/24/19 18:21 spots of blindness, visual migraines exenatide [EXENATIDE] AdvReac Mild LOW BLOOD Verified 09/24/19 18:21 SUGAR, CONFUSION lisinopril [LISINOPRIL] AdvReac Mild COUGH, Verified 09/24/19 18:21 CHEST PAIN pioglitazone [PIOGLITAZONE] AdvReac Mild EDEMA Verified 09/24/19 18:21 Review of Systems <JOY Sullivan - Last Filed: 09/24/19 22:25> Review of Systems Narrative: General: Denies fever, chills, fatigue, malaise, sweats. HEENT: Denies sinus pain, ear pain, sore throat, difficulty swallowing, di zziness. Respiratory: Denies dyspnea, cough, wheezing, hemoptysis, sputum. Cardiovascular: Denies chest pain, palpitations, orthopnea, edema. Gastrointestinal: Denies nausea, vomiting, abdominal pain, diarrhea, constipation, melena. : Denies dysuria, frequency, incontinence, hematuria, urinary retention. Musculoskeletal: See HPI Skin: Denies rash, skin lesions, or other. Neurologic: Denies weakness, headache, numbness, change in speech, confusion, seizures, incoordination. Psychiatric: No concerning psychosocial issues. 12-point review of systems is negative except for those stated above. Patient History <JOY Sullivan - Last Filed: 09/24/19 22:25> Medical History Asthma (Acute) Bilateral hip bursitis (Acute) Bleeds easily (Acute) CAD (coronary artery disease) (Acute) Compression fracture (Acute ~1982) Diabetes (Acute) Diverticulosis (Acute) Easy bruisability (Acute) HTN (hypertension) (Acute) Hx of migraines (Acute) Hyperlipidemia (Acute) Large bowel obstruction (Acute ~2014) Non-STEMI (non-ST elevated myocardial infarction) (Acute 07/20/16) Osteoarthritis (Acute) Pneumonia (Acute) Surgical History History of arthroplasty of right knee (Acute 01/11/19) History of partial hysterectomy (Acute) Hx of tonsillectomy (Acute) Hx of vaginal surgery (Acute) 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) Status post cataract extraction of both eyes with insertion of intraocular lens (Acute) Status post hysterectomy Family History Brother Age: 76 Diabetes mellitus Heart disease High cholesterol Brother Age: 65 Overweight Diabetes mellitus Mother Cancer Sister Age: 82 Diabetes mellitus Social History household members: spouse Smoking Status: Former smoker alcohol intake: current alcohol intake frequency: a few times a week Substance Use Type: does not use Exam <JOY Sullivan - Last Filed: 09/24/19 22:25> Narrative Exam Narrative: General appearance: well developed, well nourished, in no acute distress. Head: normocephalic, atraumatic, no scalp lesions, non-tender. Eye: pupil equal, round. EOMI. Nose: nares patent. Oral: mucosa moist. Neck/Thyroid: neck supple, full range of motion, no visible masses. Skin: no suspicious rashes, lesions over visible areas. Warm and dry. Heart: no clubbing, no cyanosis, no edema. Lungs: Breathing even and unlabored. No stridor. No accessory muscles used. Chest: normal shape and expansion. Abdomen: non-obese, non-distended. Neurologic: alert and oriented. Cognitive exam, [employer] and PNS grossly intact on informal exam. Psych: good eye contact, normal affect. Initial Vital Signs Initial Vital Signs: Vital Signs Temperature 98.6 F 09/24/19 18:10 Pulse Rate 75 09/24/19 18:10 Respiratory Rate 16 09/24/19 18:10 Blood Pressure 202/78 H 09/24/19 18:10 Pulse Oximetry 98 09/24/19 18:10 Extrem Left lower extremity: full ROM, normal capillary refill, edema Details: 2+, knee Details: normal to inspection, normal ROM, knee ligament exam normal and other (Surgical incision on left knee without signs of infection), lower leg Details: pitting edema; no erythema and no unusual warmth, ankle Details: pitting edema and normal ROM; no warmth and foot Details: normal capillary refill, toes with normal ROM, edema Location: of the dorsal foot, vascular exam Details: dorsalis pedis pulse present and normal capillary refill and motor-sensory exam Details: light-touch abnormal; no tenderness <Curtis Cornelius DO - Last Filed: 09/24/19 23:44> Initial Vital Signs Initial Vital Signs: Vital Signs Temperature 98.6 F 09/24/19 18:10 Pulse Rate 75 09/24/19 18:10 Respiratory Rate 16 09/24/19 18:10 Blood Pressure 202/78 H 09/24/19 18:10 Pulse Oximetry 98 09/24/19 18:10 Scores <JOY Sullivan - Last Filed: 09/24/19 22:25> GCS Sophia coma scale eye opening: Spontaneous Holton coma scale verbal response: Orientated Sophia coma scale motor response: Obey commands Holton coma scale total score: 15 Wells' Criteria for DVT Active Cancer (Treatment within 6 months): No Bedridden recently >3 days or major surgery within 4 weeks: Yes Calf Swelling >3cm compared to other leg: Yes Collateral (nonvericose) superficial veins present: No Entire leg swollen: No Localized tenderness along the deep vein system: No Pitting edema, confined to symtomatic leg: No Paralysis, paresis, or recent plaster immobilization of ext: Yes Previously documented DVT: No Alternative dx to DVT as likely or more likely: No Wells' criteria for DVT: 3 Course <JOY Sullivan - Last Filed: 09/24/19 22:25> Orders Ordered: ED Orders 09/24/19 18:41 perip venous low extrem lt Stat 09/24/19 18:56 B Type Natriuretic Peptide Stat Complete Blood Count AUTO DIFF Stat Comprehensive Metabolic Panel Stat Vital Signs Vital signs: Vital Signs - 8 hr 09/24/19 18:10 09/24/19 19:57 Temperature 98.6 F 97.9 F Pulse Rate 75 67 Respiratory Rate 16 18 Blood Pressure 202/78 H Blood Pressure [Right Arm] 157/55 H Pulse Oximetry 98 97 <Curtis Cornelius DO - Last Filed: 09/24/19 23:44> Orders Ordered: ED Orders 09/24/19 18:41 [facility] venous low extrem lt Stat 09/24/19 18:56 B Type Natriuretic Peptide Stat Complete Blood Count AUTO DIFF Stat Comprehensive Metabolic Panel Stat Vital Signs Vital signs: Vital Signs - 8 hr 09/24/19 18:10 09/24/19 19:57 Temperature 98.6 F 97.9 F Pulse Rate 75 67 Respiratory Rate 16 18 Blood Pressure 202/78 H Blood Pressure [Right Arm] 157/55 H Pulse Oximetry 98 97 MDM - Extremity Injury (Lower) <JOY Sullivan - Last Filed: 09/24/19 22:25> Differential Diagnosis Differential diagnosis: Likely other (DVT, Lau's cyst, cellulitis, CHF exacerbation) Medical Records Attestation: I reviewed the patient's medical records. Lab Data Attestation: I reviewed the patient's lab results. Result diagrams: 09/24/19 18:56 09/24/19 18:56 Labs: Lab Results 09/24/19 09/24/19 09/24/19 Range/Units 18:56 18:56 18:56 WBC 8.4 (4.5-11.0) X10^3/uL RBC 4.32 (4.0-5.2) X10^6/uL Hgb 12.7 (12.0-16.0) g/dL Hct 38.0 (36-46) % MCV 88.1 (80-100) fL MCH 29.4 (26-34) PG MCHC 33.3 (30-36) % RDW 14.7 (11.6-14.8) % Plt Count 214 (150-400) X10^3/uL Neut % (Auto) 66.8 (50-75) % Lymph % (Auto) 21.2 L (25-40) % [place] % (Auto) 7.2 (3-14) % Eos % (Auto) 3.9 (2-4) % Baso % (Auto) 0.9 (0-2) % Neut # (Auto) 5600 (5580-3835) /uL Lymph # (Auto) 1800 (9208-4089) /uL [place] # (Auto) 600 (0-900) /uL Eos # (Auto) 300 (0-450) /uL Baso # (Auto) 100 (0-100) /uL Sodium 140 (137-145) mmol/L Potassium 3.5 (3.4-5.1) mmol/L Chloride 100 (98-107) mmol/L Carbon Dioxide 31 (22-32) mmol/L BUN 22 H (7-17) mg/dL Creatinine 0.70 (0.52-1.04) mg/dL Estimated GFR > 60.0 (>60) mL/min BUN/Creatinine Ratio 31.4 H (6-22) Glucose 149 H (80-110) mg/dL Calcium 9.2 (8.4-10.2) mg/dL Total Bilirubin 0.4 (0.2-1.3) mg/dL AST 26 (14-36) IU/L ALT 17 (<35) IU/L Alkaline Phosphatase 80 (38-126) U/L B-Natriuretic Peptide 130 H (<100) Total Protein 6.4 (6.3-8.2) g/dL Albumin 4.0 (3.5-5.0) g/dL Globulin 2.4 (1.7-4.1) g/dL Albumin/Globulin Ratio 1.7 (1.0-2.8) Imaging Data US-LLE doppler: Radiologist's impression: [address] [address] Ultrasound Report Signed Patient: Franca NairMR#: [id number] : 3Acct:[id number] Age/Sex: 78 / FDate of Service: 09/24/19 Loc: ED Accession Number: [id number] Procedure: US periph venous low extrem lt Ordering Provider: Alvin Lind PROCEDURE: US PERIPH VENOUS LOW EXTREM LT INDICATIONS: EDEMA POST TKA 08-26-19 TECHNIQUE: Real-time imaging, as well as color and pulse Doppler interrogation, were performed of the lower extremity deep veins from the inguinal ligament to the popliteal fossa. COMPARISON: None. FINDINGS: The common femoral, femoral and popliteal veins are normally compressible, and free of intraluminal thrombus. Color and pulse Doppler demonstrate normal phasic intraluminal flow. There is normal augmentation response to distal compression maneuver. 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 IMPRESSION: 1. Negative left lower extremity duplex ultrasound for DVT. 2. Lau's cyst Dictated by: Alessio Delgado M.D. on 09/24/2019 at 19:45 Approved by: Alessio Delgado M.D. on 09/24/2019 at 19:51 MDM Narrative Medical decision making narrative: This is a 78-year-old female who was referred to emergency room to rule out DVT on her left lower extremity by Dr. Abby Haji, orthopedist. Patient does report some discomfort in her calf. She denied chest pain, breathing difficulty. Patient had left knee surgery about a month ago and is currently doing physical therapy for rehabilitation. Patient has been noticing increasing left lower extremity swelling over last 2 week. Patient denies constitutional symptoms. Patient had similar symptoms in the past due to Lau's cyst which she thinks this has been removed during recent left knee surgery. Patient has intact sensation, distal pulses, and movements to left toes. Patient is currently taking Torsemide daily but denies history of CHF. Ultrasound test for vascular on left lower extremity showed negative for DVT and Lau's cyst is seen per today's test. There was no leukocytosis or left shift. Mildly elevated BUN as 22 and patient was advised to hydrate herself adequately. Mildly elevated BMP of 130. Patient advised to use compression stockings and elevate her extremities while rest. Advised to continue with her medication. Baudilio wrap was offered affected leg due to she has short length of compression socks and has a long travel to go home to [facility]. Return precautions such as signs and symptoms for cellulitis was discussed and advised to follow up with PCP in 2-3 days. Patient verbalized understanding and agrees with treatment plan. <Curtis Cornelius DO - Last Filed: 09/24/19 23:44> Lab Data Labs: Lab Results 09/24/19 09/24/19 09/24/19 Range/Units 18:56 18:56 18:56 WBC 8.4 (4.5-11.0) X10^3/uL RBC 4.32 (4.0-5.2) X10^6/uL Hgb 12.7 (12.0-16.0) g/dL Hct 38.0 (36-46) % MCV 88.1 (80-100) fL MCH 29.4 (26-34) PG MCHC 33.3 (30-36) % RDW 14.7 (11.6-14.8) % Plt Count 214 (150-400) X10^3/uL Neut % (Auto) 66.8 (50-75) % Lymph % (Auto) 21.2 L (25-40) % [place] % (Auto) 7.2 (3-14) % Eos % (Auto) 3.9 (2-4) % Baso % (Auto) 0.9 (0-2) % Neut # (Auto) 5600 (6024-3551) /uL Lymph # (Auto) 1800 (8270-8006) /uL [place] # (Auto) 600 (0-900) /uL Eos # (Auto) 300 (0-450) /uL Baso # (Auto) 100 (0-100) /uL Sodium 140 (137-145) mmol/L Potassium 3.5 (3.4-5.1) mmol/L Chloride 100 (98-107) mmol/L Carbon Dioxide 31 (22-32) mmol/L BUN 22 H (7-17) mg/dL Creatinine 0.70 (0.52-1.04) mg/dL Estimated GFR > 60.0 (>60) mL/min BUN/Creatinine Ratio 31.4 H (6-22) Glucose 149 H (80-110) mg/dL Calcium 9.2 (8.4-10.2) mg/dL Total Bilirubin 0.4 (0.2-1.3) mg/dL AST 26 (14-36) IU/L ALT 17 (<35) IU/L Alkaline Phosphatase 80 (38-126) U/L B-Natriuretic Peptide 130 H (<100) Total Protein 6.4 (6.3-8.2) g/dL Albumin 4.0 (3.5-5.0) g/dL Globulin 2.4 (1.7-4.1) g/dL Albumin/Globulin Ratio 1.7 (1.0-2.8) Discharge Plan Departure Patient Disposition: Home Clinical Impression: Left leg swelling Discharge Date/Time: 09/24/19 20:31 Activity Restrictions/Additional Instructions: You have been diagnosed with [left leg edema. Ultrasound test for DVT was negative. Blood test was unremarkable for infection indicator, BNP. Physical exam is not consistent with cellulitis.]. What to do: *Take your medications as directed. Please continue with her current medicati ons. Please elevate left lower leg during rest. Use compression stocking for swelling. *Follow up with your primary care provider in 2-3 days, call for an appointment. Let them know you were seen in the ED and that we asked you to be seen in follow up. *Return to ED if you have any new, worsening, or concerning symptoms, such as [chest pain, breathing difficulty, unable to tolerate fluids, fever, increasing redness, swelling, pain on affected leg, weakness, any acute concerns]. Prescriptions: No Action cholecalciferol (vitamin D3) [Vitamin D3] 1,000 unit Capsule 1,000 unit PO BEDTIME Qty: 0 RF: 0 cyanocobalamin (vitamin B-12) 1,000 MCG tablet extended release 5,000 mcg PO DAILY Qty: 0 RF: 0 [TRUET GLUCOSE STRIPS] 1 strip NR QDAY Qty: 100 RF: 5 ascorbic acid (vitamin C) 500 MG tablet 500 mg PO QDAY Qty: 0 RF: 0 Lantus U-100 Insulin 100 unit/mL Solution 50 unit SUBCUT QAM RF: 0 diltiazem HCl 180 mg Capsule,Extended Release 24 Hr 180 mg PO DAILY RF: 0 irbesartan 75 mg Tablet 150 mg PO DAILY RF: 0 ibuprofen 600 mg Tablet 600 mg PO BID PRN (Reason: Pain) RF: 0 potassium gluconate 595 mg (99 mg) Tablet 595 mg PO DAILY RF: 0 carvedilol [Coreg] 12.5 MG tablet 25 mg PO BID RF: 0 ezetimibe [Zetia] 10 MG tablet 10 mg PO BEDTIME RF: 0 Victoza 2-Reuben 0.6 MG/0.1 ML pen injector 1.2 mg SQ QPM RF: 0 torsemide 20 mg Tablet 20 mg PO DAILY RF: 0 rosuvastatin [Crestor] 20 mg Tablet 20 mg PO QPM RF: 0 hydrocodone-acetaminophen 5-325 mg Tablet 1 tab PO BEDTIME PRN (Reason: Pain) RF: 0 aspirin 81 mg Tablet,Delayed Release (Dr/Ec) 81 mg PO BID Qty: 60 RF: 0 hydroxyzine pamoate [Vistaril] 25 mg capsule 25 mg PO BID PRN (Reason: muscle spasm) Qty: 30 RF: 0 Referrals: Abby Haji MD [Physician] - Jorge Hernandez MD [Primary Care Provider] -
[2019-09-24 19:50] LABS: B Type Natriuretic Peptide 130 (<100)
[2019-09-24 19:57] VITALS: BP 157/55; PULSE 67; RESP 18; TEMP 36.6; O2SAT 97
== END 2019-09-24 20:31 | disposition home or self-care (01) ==
PROVIDERS: Emergency Provider Nurse Practitioner Family; PCP Family Medicine
DX: M79.89 Other specified soft tissue disorders (principal); E11.9 Type 2 diabetes mellitus without complications; I10 Essential (primary) hypertension; Z89.512 Acquired absence of left leg below knee
CPT/HCPCS: 36415; 80053; 83880; 85025; 93971; 99282; 99284

== ENCOUNTER → 2019-12-10 08:47 | Outpatient (CLI) | payer MEDICARE, OTHER, SELFPAY ==
[2019-08-26 19:24] VITALS: BMI 30.7
--- NOTE | 2019-12-10 | DI.US.S_ITS ---
LIMITED ULTRASOUND OF LEFT BREAST AND AXILLA: 12/10/2019 CLINICAL: Bilateral breast lumps. Per patient, she reports an occasional palpable painful lump of the lateral left breast near the 1-4 o'clock positions that radiates to the nipple. She states that she does not feel this lump or pain currently at the time of this exam. Patient's referring provider's order/requisition states that the referring provider was able to palpate a lump along the medial and inferior edge from 4-8 o'clock positions within the right breast. Comparison is made to exams dated: 12/10/2019 mammogram, 11/24/2015 mammogram, 02/28/2012 mammogram, 02/26/2011 mammogram, and 01/03/2010 mammogram - [facility]. Color flow and real-time ultrasound of the left breast 12-6 o'clock, and axilla regions were performed. Black scale images of the real-time examination were reviewed. Targeted ultrasound was performed in the region of the patient's reported focal painful palpable area of concern in the lateral left breast. There is dense fibroglandular tissue with diffuse ductal ectasia, but no other underlying breast mass or abnormality is identified. Targeted ultrasound of the left axilla demonstrates no mass or lymphadenopathy. IMPRESSION: PROBABLY BENIGN Targeted ultrasound was performed in the region of the patient's reported focal painful palpable area of concern in the lateral left breast. There is dense fibroglandular tissue with diffuse ductal ectasia, but no other underlying breast mass or abnormality is identified. Recommend clinical follow-up for further evaluation and management of the patient's reported symptoms. A follow-up diagnostic mammogram in 6 months is recommended to demonstrate stability of the tissue in the upper outer left breast seen on diagnostic mammography performed earlier today 12/10/2019. The patient is advised to monitor her breasts and to return sooner for re-evaluation should she feel anything grow or change. This exam was interpreted at Station ID: [id number]. Electronically Signed By: Claude Phelps M.D. ecl/:12/10/2019 12:09:46 copy to: MACKENZIE CONTE letter sent: Followup Recommended Ultrasound BI-RADS: 3 Probably benign
--- NOTE | 2019-12-10 | DI.US.S_ITS ---
LIMITED ULTRASOUND OF RIGHT BREAST: 12/10/2019 CLINICAL: Bilateral breast lumps. Per patient, she reports an occasional palpable painful lump of the lateral left breast near the 1-4 o'clock positions that radiates to the nipple. She states that she does not feel this lump or pain currently at the time of this exam. Patient's referring provider's order/requisition states that the referring provider was able to palpate a lump along the medial and inferior edge from 4-8 o'clock positions within the right breast. Comparison is made to exams dated: 12/10/2019 mammogram, 11/24/2015 mammogram, 02/28/2012 mammogram, 02/26/2011 mammogram, and 01/03/2010 mammogram - [facility]. Color flow and real-time ultrasound of the right breast 12-9 o'clock region were performed. Black scale images of the real-time examination were reviewed. Targeted ultrasound was performed of the medial and inferior right breast from the 12 o'clock through 9 o'clock positions in the region of the patient's referring provider's reported focal palpable areas of concern. There is mild diffuse ductal ectasia with dense fibroglandular tissue, but with no other underlying breast mass or abnormality identified. IMPRESSION: BENIGN 1) Targeted ultrasound was performed of the medial and inferior right breast from the 12 o'clock through 9 o'clock positions in the region of the patient's referring provider's reported focal palpable areas of concern. There is diffuse ductal ectasia with dense fibroglandular tissue, but with no other underlying breast mass or abnormality identified. Recommend clinical follow-up for further evaluation and management of the patient's reported symptoms. 2) There is no sonographic evidence of malignancy in the imaged areas of the right breast. Return to annual screening mammography schedule for the right breast is recommended. A follow-up diagnostic mammogram for the left breast has been recommended on the seperately dictated left breast exam. The patient is advised to monitor her breasts and to return sooner for re-evaluation should she feel anything grow or change. This exam was interpreted at Station ID: [id number]. Electronically Signed By: Claude Phelps M.D. ecl/:12/10/2019 12:06:21 copy to: MACKENZIE CONTE Ultrasound BI-RADS: 2 Benign
--- NOTE | 2019-12-10 | DI.MG.S_ITS ---
BILATERAL DIGITAL DIAGNOSTIC MAMMOGRAM 3D/2D: 12/10/2019 CLINICAL: Bilateral breast lumps. Per patient, she reports an occasional palpable painful lump of the lateral left breast near the 1-4 o'clock positions that radiates to the nipple. She states that she does not feel this lump or pain currently at the time of this exam. Patient's referring provider's order/requisition states that the referring provider was able to palpate a lump along the medial and inferior edge from 4-8 o'clock positions within the right breast. Comparison is made to exams dated: 11/24/2015 mammogram, 02/28/2012 mammogram, and 02/26/2011 mammogram - [facility]. The tissue of both breasts is heterogeneously dense. This may lower the sensitivity of mammography. Per patient, she reports an occasional palpable painful lump of the lateral left breast near the 1-4 o'clock positions that radiates to the nipple. She states that she does not feel this lump or pain currently at the time of this exam. Patient's referring provider's order/requisition states that the referring provider was able to palpate a lump along the medial and inferior edge from 4-8 o'clock positions within the right breast. There is a triangular marker overlying the skin of the superior lateral left breast at the site of the patient's reported occasional painful palpable abnormality. There is dense fibroglandular tissue that is stable to prior comparison exams with no other underlying mass or mammographic abnormality. There is dense fibroglandular tissue that is stable to prior comparison exams with no other underlying mass or mammographic abnormality of the inferior and medial right breast to correlate with the referring provider's sites of palpable concern. There are bilateral vascular calcifications. No significant masses, calcifications, or other findings are seen in either breast. IMPRESSION: INCOMPLETE: NEEDS ADDITIONAL IMAGING EVALUATION 1) There is a triangular marker overlying the skin of the superior lateral left breast at the site of the patient's reported occasional painful palpable abnormality. There is dense fibroglandular tissue that is stable to prior comparison exams with no other underlying mass or mammographic abnormality. Targeted diagnostic ultrasound recommended for further evaluation, which will be performed immediately following this exam. 2) There is dense fibroglandular tissue that is stable to prior comparison exams with no other underlying mass or mammographic abnormality of the inferior and medial right breast to correlate with the referring provider's sites of palpable concern. Targeted diagnostic ultrasound recommended for further evaluation, which will be performed immediately following this exam. This exam was interpreted at Station ID: [id number]. NOTE: For mammograms, a report in lay terms will be sent to the patient. Approximately 15% of breast malignancies will not be visualized mammographically. In the management of a palpable breast mass, a negative mammogram must not discourage biopsy of a clinically suspicious lesion. Electronically Signed By: Claude Phelps M.D. ecl/:12/10/2019 11:59:52 copy to: MACKENZIE CONTE ACR BI-RADS Category 0: Incomplete [id number]
== END ==
PROVIDERS: Family Provider Family Medicine; PCP Family Medicine; Visit Provider Nurse Practitioner Family
DX: R92.8 Other abnormal and inconclusive findings on diagnostic imaging of breast (principal); N64.4 Mastodynia; N60.42 Mammary duct ectasia of left breast; N60.41 Mammary duct ectasia of right breast
CPT/HCPCS: 76642; 77066; G0279

== ENCOUNTER 2023-03-19 15:26 | Emergency (ER) | payer MEDICARE, SELFPAY ==
[2019-08-26 19:24] VITALS: BMI 30.7
[2023-03-19 15:32] VITALS: BP 216/93; PULSE 65; RESP 18; TEMP 36.6; O2SAT 96; BMI 31.3
--- NOTE | 2023-03-19 15:41 | DI.RAD.S_ITS ---
PROCEDURE: XR KNEE RT 3V INDICATIONS: Mechanical fall residual head and neck pain TECHNIQUE: 3 views of the knee were acquired. COMPARISON: [facility], CR, XR KNEE RT 1TO2V, 01/11/2019, 14:27. [facility], CR, XR KNEE ARTHRITIC SERIES LT, 09/09/2019, 8:33. [facility], CT, CT CERVICAL SPINE WO CON, 03/19/2023, 16:01. [facility], CT, CT HEAD/BRAIN WO CON, 03/19/2023, 16:01. [facility], CT, CT FACIAL BONES WO CON, 03/19/2023, 16:01. [facility], CR, XR CLAVICLE RT, 03/19/2023, 15:51. [facility], CR, XR KNEE LT 1TO2V, 08/26/2019, 17:09. FINDINGS: Bones: No fractures or dislocations. No suspicious bony lesions. Right knee arthroplasty hardware is seen, without findings of failure or loosening. Soft tissues: There is a [id number] right knee joint effusion. No suspicious soft tissue calcifications. IMPRESSION: [id number]-[id number] right knee joint effusion. Negative for fracture. Intact appearing right knee arthroplasty hardware. Dictated by: Ritchie García M.D. on 03/19/2023 at 15:40 Approved by: Ritchie García M.D. on 03/19/2023 at 15:41
--- NOTE | 2023-03-19 15:41 | DI.CT.S_ITS ---
PROCEDURE: CT CERVICAL SPINE WO CON INDICATIONS: Mechanical fall residual head and neck pain TECHNIQUE: Noncontrast 3 mm thick sections acquired from the skull base to the T4 level. Sagittal and coronal reformats were then constructed. For radiation dose reduction, the following was used: automated exposure control, adjustment of mA and/or kV according to patient size. COMPARISON: [facility], CT, CT HEAD/BRAIN WO CON, 03/19/2023, 16:01. [facility], CT, CT FACIAL BONES WO CON, 03/19/2023, 16:01. [facility], CR, XR KNEE RT 3V, 03/19/2023, 15:51. [facility], CR, XR CLAVICLE RT, 03/19/2023, 15:51. FINDINGS: Image quality: Excellent. Bones: No fractures or dislocations. Visualized superior ribs are intact. Focal degenerative change is seen involving the C1-C2 interface anteriorly. At the C5-C6 level, there is moderate disc space narrowing, with minimal retrolisthesis. Milder degenerative changes are seen elsewhere. Post CABG changes are partially seen. Soft tissues: Prevertebral soft tissues are normal in thickness. No paravertebral hematomas. No apical pneumothoraces. Atherosclerotic calcification is noted. There is a densely calcified focus seen within the anterior left mediastinum, as on series 2, image 56 measuring 2 cm. IMPRESSION: Negative for acute fracture. Degenerative changes are seen, which are worst at C5-C6. There is a 2 cm densely calcified focus seen within the left anterior superior mediastinum, which is non-specific, yet is most likely benign. Additional findings: Post CABG changes Dictated by: Ritchie García M.D. on 03/19/2023 at 15:33 Approved by: Ritchie García M.D. on 03/19/2023 at 15:35
--- NOTE | 2023-03-19 15:41 | DI.CT.S_ITS ---
PROCEDURE: CT HEAD/BRAIN WO CON INDICATIONS: Mechanical fall residual head and neck pain TECHNIQUE: Noncontrast 4.5 mm thick angled axial sections acquired from the foramen magnum to the vertex, with coronal and sagittal reformats. For radiation dose reduction, the following was used: automated exposure control, adjustment of mA and/or kV according to patient size. COMPARISON: [facility], CT, CT CERVICAL SPINE WO CON, 03/19/2023, 16:01. [facility], CT, CT FACIAL BONES WO CON, 03/19/2023, 16:01. [facility], CR, XR KNEE RT 3V, 03/19/2023, 15:51. [facility], CR, XR CLAVICLE RT, 03/19/2023, 15:51. FINDINGS: Image quality: Excellent. CSF spaces: Basal cisterns are patent. No extra-axial fluid collections. The ventricles are symmetric in size and shape. Brain: No intracranial bleeds or masses. There is cerebral volume loss for age, with resultant ventricular and sulcal prominence. There are periventricular and deep white matter chronic small vessel ischemic changes. There is intracranial internal carotid artery atherosclerosis. Skull and face: Calvarium and visualized facial bones appear intact, without suspicious lesions. Incidental note is made of hyperostosis frontalis. This is not considered to be pathologic in a woman of this age. Sinuses: There is complete opacification of the right maxillary sinus. The paranasal sinuses otherwise appear clear. No abnormal fluid is seen within the mastoid air cells. IMPRESSION: No acute intracranial hemorrhage is seen. No acute intracranial process is seen. Focal right maxillary sinus disease. Dictated by: Ritchie García M.D. on 03/19/2023 at 15:32 Approved by: Ritchie García M.D. on 03/19/2023 at 15:33
--- NOTE | 2023-03-19 15:41 | DI.RAD.S_ITS ---
PROCEDURE: XR CLAVICLE RT INDICATIONS: Mechanical fall residual head and neck pain TECHNIQUE: 2 views of the clavicle were acquired. COMPARISON: [facility], CT, CT CERVICAL SPINE WO CON, 03/19/2023, 16:01. [facility], CT, CT HEAD/BRAIN WO CON, 03/19/2023, 16:01. [facility], CT, CT FACIAL BONES WO CON, 03/19/2023, 16:01. [facility], CR, XR KNEE RT 3V, 03/19/2023, 15:51. FINDINGS: Bones: No fractures or dislocations. No suspicious bony lesions. Degenerative changes are seen, including subacromial spurring. Post CABG changes are partially seen. Soft tissues: No suspicious soft tissue calcifications. The visualized lung demonstrates an unremarkable appearance. IMPRESSION: No displaced clavicle fracture is seen on these plain films. Dictated by: Ritchie García M.D. on 03/19/2023 at 15:37 Approved by: Ritchie García M.D. on 03/19/2023 at 15:39
--- NOTE | 2023-03-19 16:03 | DI.CT.S_ITS ---
PROCEDURE: CT FACIAL BONES WO CON INDICATIONS: Fall. Facial trauma. TECHNIQUE: Noncontrast 2.5 mm thick axial images acquired from the mandible through the frontal sinuses, with coronal and sagittal reformatting. For radiation dose reduction, the following was used: automated exposure control, adjustment of mA and/or kV according to patient size. COMPARISON: [facility], CT, CT HEAD/BRAIN WO CON, 03/19/2023, 16:01. [facility], CT, CT CERVICAL SPINE WO CON, 03/19/2023, 16:01. [facility], CR, XR KNEE RT 3V, 03/19/2023, 15:51. [facility], CR, XR CLAVICLE RT, 03/19/2023, 15:51. FINDINGS: Image quality: There is artifact associated with the metallic hardware. Bones and teeth: Orbital chapa are intact. Sinus chapa show no fracture or deformity. Nasal bones and septum are intact. Visualized portions of the mandible demonstrate no fractures or subluxation. Zygomatic arches are intact. Pterygoid plates are intact. Visualized portions of the skull base and auditory canals are intact. Cervical spine degenerative changes are partially seen. Sinuses: There is complete opacification seen of the right maxillary sinus. There is demineralization of the medial wall of the right maxillary sinus, with mild medial bowing. The paranasal sinuses otherwise appear clear. Soft tissues: No edema, masses, or fluid collections. No enlarged lymph nodes. No soft tissue lacerations or debris. Vascular: Visualized vascular structures appear normal in the absence of contrast. Bony vascular foramina and canals are intact. IMPRESSION: No displaced fracture can be seen. Focal right maxillary sinus disease is seen, with a chronic appearance. Dictated by: Ritchie García M.D. on 03/19/2023 at 15:35 Approved by: Ritchie García M.D. on 03/19/2023 at 15:37
--- NOTE | 2023-03-19 16:05 | ED.HEATRA ---
HPI - Head Injury General Chief complaint: Head Injury Stated complaint: facial injury Time Seen by Provider: 03/19/23 16:03 Source: patient Mode of arrival: Ambulatory Limitations: no limitations History of Present Illness HPI Narrative: Patient lives nearby in the [facility]. She stumbled and fell in her home this morning, doing a face plant. There was no LOC. She is bruising around her eyes. She is no visual changes. She is no bleeding from her nose or mouth. She has slight neck pain. She injured her right knee when she went down. She was able to get up for a period of time. She was seen a local clinic and referred here. She is not anticoagulated. She is no confusion. She is ambulatory without assistance despite the knee pain. There is no peripheral numbness or weakness. She is mild pain only at this time. Related Data Home Medications Medication Instructions Recorded Confirmed cholecalciferol (vitamin D3) 25 1,000 unit PO BEDTIME ##0 05/13/11 08/12/19 mcg (1,000 unit) capsule (Vitamin D3) cyanocobalamin (vitamin B-12) 5,000 mcg PO DAILY ##0 08/16/16 08/12/19 1,000 mcg tablet,extended release ascorbic acid (vitamin C) 500 mg 500 mg PO QDAY ##0 03/21/17 08/12/19 tablet carvedilol 12.5 mg tablet (Coreg) 25 mg PO BID 12/23/18 08/26/19 diltiazem HCl 180 mg capsule,24 180 mg PO DAILY 12/23/18 08/26/19 hr,extended release ezetimibe 10 mg tablet (Zetia) 10 mg PO BEDTIME 12/23/18 08/26/19 ibuprofen 600 mg tablet 600 mg PO BID PRN Pain 12/23/18 08/26/19 insulin glargine 100 unit/mL 50 unit SUBCUT QAM 12/23/18 08/26/19 subcutaneous solution (Lantus U-100 Insulin) irbesartan 75 mg tablet 150 mg PO DAILY 12/23/18 08/26/19 liraglutide 0.6 mg/0.1 mL (18 mg/3 1.2 mg SQ QPM 12/23/18 08/26/19 mL) subcutaneous pen injector (Contents Firstza 2-Reuben) potassium gluconate 595 mg (99 mg) 595 mg PO DAILY Hypokalemia 12/23/18 08/26/19 tablet hydrocodone 5 mg-acetaminophen 325 1 tab PO BEDTIME PRN Pain 08/12/19 08/26/19 mg tablet rosuvastatin 20 mg tablet (Crestor) 20 mg PO QPM 08/12/19 08/26/19 torsemide 20 mg tablet 20 mg PO DAILY 08/12/19 08/26/19 Previous Rx's Medication Instructions Recorded [TRUET GLUCOSE STRIPS] 1 strip NR QDAY ##100 11/19/16 aspirin 81 mg tablet,delayed 81 mg PO BID #60 tabs 08/27/19 release hydroxyzine pamoate 25 mg capsule 25 mg PO BID PRN muscle spasm #30 08/28/19 (Vistaril) caps Allergies Allergy/AdvReac Type Severity Reaction Status Date / Time cefaclor [CEFACLOR] Allergy Intermediate RASH Verified 03/19/23 15:32 Cephalosporins Allergy Intermediate Rash, Verified 03/19/23 15:32 [CEPHALOSPORINS] Respiratory problems ciprofloxacin [From CIPRO] Allergy Intermediate RASH Verified 03/19/23 15:32 neomycin [NEOMYCIN] Allergy Intermediate RASH Verified 03/19/23 15:32 nitrofurantoin Allergy Intermediate RESPIRATORY Verified 03/19/23 15:32 [NITROFURANTOIN] PROBLEMS Quinolones [QUINOLONES] Allergy Intermediate Rash, Verified 03/19/23 15:32 Respiratory problems Sulfa (Sulfonamide Allergy Mild RASH, Verified 03/19/23 15:32 Antibiotics) HEADACHES [SULFA (SULFONAMIDE ANTIBIOTICS)] metformin [METFORMIN] AdvReac Severe Constant Verified 03/19/23 15:32 diarrhea oxycodone AdvReac Severe Hallucinations, Verified 03/19/23 15:32 spots of blindness, visual migraines exenatide [EXENATIDE] AdvReac Mild LOW BLOOD Verified 03/19/23 15:32 SUGAR, CONFUSION lisinopril [LISINOPRIL] AdvReac Mild COUGH, Verified 03/19/23 15:32 CHEST PAIN pioglitazone [PIOGLITAZONE] AdvReac Mild EDEMA Verified 03/19/23 15:32 Patient History Medical History (Updated 10/09/19 @ 00:00 by ) Asthma Bilateral hip bursitis Bleeds easily CAD (coronary artery disease) Compression fracture (~1982) Diabetes Diverticulosis Easy bruisability HTN (hypertension) Hx of migraines Hyperlipidemia Large bowel obstruction (~2014) Non-STEMI (non-ST elevated myocardial infarction) (07/20/16) Osteoarthritis Pneumonia Surgical History History of arthroplasty of right knee (01/11/19) History of partial hysterectomy Hx of tonsillectomy Hx of vaginal surgery 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) Status post cataract extraction of both eyes with insertion of intraocular lens Status post hysterectomy Family History Brother Age: 79 Diabetes mellitus Heart disease High cholesterol Brother Age: 68 Overweight Diabetes mellitus Mother Cancer Sister Age: 85 Diabetes mellitus Social History household members: spouse Smoking Status: Former smoker alcohol intake: current Smoking Status: Former smoker alcohol intake frequency: a few times a week Substance Use Type: does not use Exam Initial Vital Signs Initial Vital Signs: Vital Signs Temperature 97.9 F 03/19/23 15:32 Pulse Rate 65 03/19/23 15:32 Respiratory Rate 18 03/19/23 15:32 Blood Pressure 216/93 H 03/19/23 15:32 Pulse Oximetry 96 03/19/23 15:32 Oxygen Delivery Method Room Air 03/19/23 15:32 Course Orders Ordered: ED Orders 03/19/23 15:41 CT cervical spine wo con Stat CT head/brain wo con Stat XR clavicle RT Stat XR knee RT 3V Stat 03/19/23 16:03 CT facial bones wo con Stat Vital Signs Vital signs: Vital Signs - 8 hr 03/19/23 15:32 Temperature 97.9 F Pulse Rate 65 Respiratory Rate 18 Blood Pressure 216/93 H Pulse Oximetry 96 Oxygen Delivery Method Room Air Discharge Plan Departure Prescriptions: No Action cholecalciferol (vitamin D3) [Vitamin D3] 1,000 unit Capsule 1,000 unit PO BEDTIME Qty: 0 cyanocobalamin (vitamin B-12) 1,000 MCG tablet extended release 5,000 mcg PO DAILY Qty: 0 [TRUET GLUCOSE STRIPS] 1 strip NR QDAY Qty: 100 5RF ascorbic acid (vitamin C) 500 MG tablet 500 mg PO QDAY Qty: 0 Lantus U-100 Insulin 100 unit/mL Solution 50 unit SUBCUT QAM Patient Comments: pt states she 37 units (normally takes 50 units) diltiazem HCl 180 mg Capsule,Extended Release 24 Hr 180 mg PO DAILY irbesartan 75 mg Tablet 150 mg PO DAILY ibuprofen 600 mg Tablet 600 mg PO BID PRN (Reason: Pain) potassium gluconate 595 mg (99 mg) Tablet 595 mg PO DAILY carvedilol [Coreg] 12.5 MG tablet 25 mg PO BID ezetimibe [Zetia] 10 MG tablet 10 mg PO BEDTIME Victoza 2-Reuben 0.6 MG/0.1 ML pen injector 1.2 mg SQ QPM Patient Comments: After dinner meal torsemide 20 mg Tablet 20 mg PO DAILY rosuvastatin [Crestor] 20 mg Tablet 20 mg PO QPM hydrocodone-acetaminophen 5-325 mg Tablet 1 tab PO BEDTIME PRN (Reason: Pain) aspirin 81 mg Tablet,Delayed Release (Dr/Ec) 81 mg PO BID Qty: 60 0RF hydroxyzine pamoate [Vistaril] 25 mg capsule 25 mg PO BID PRN (Reason: muscle spasm) Qty: 30 0RF Rx Instructions: take 1 capsule by mouth twice a day as needed for muscle spasms
[2023-03-19 18:14] VITALS: BP 216/95; PULSE 57; RESP 18; O2SAT 98
[2023-03-19 18:54] VITALS: BP 215/90; PULSE 89
[2023-03-19] MEDS: carvediloL 12.5 MG TABLET 25 MG PO (18:54)
[2023-03-19] MEDS: dilTIAZem CD 180 MG CAP PO (18:55)
[2023-03-19] MEDS: ACETAMINOPHEN 325 MG TABLET 650 MG PO (18:56)
--- NOTE | 2023-03-19 18:56 | ED.HEATRA ---
HPI - Head Injury <Cathi Enoc Robert, [facility] - Last Filed: 03/19/23 19:57> General Chief complaint: Head Injury Stated complaint: facial injury Time Seen by Provider: 03/19/23 16:03 Source: patient Mode of arrival: Ambulatory Limitations: no limitations History of Present Illness HPI Narrative: Year old female presents to the emergency department after a fall with a head injury that occurred last night at home on [place]. Patient states that this was most likely mechanical, she her dinner in her hand and was taking a couple of steps to go sit down and states that she slipped and fell, may have caught her toe on uneven marizol and hit her head. She denies LOC, it was unwitnessed, she denies any vomiting episodes, denies any midline neck pain. States that she has right shoulder, right knee pain with history of right total knee arthroplasty and head pain, brain fog, mild dizziness with position changes. She denies any urinary frequency, urgency, or bowel changes, states that she is had loose stool for quite a long time at baseline. She denies fever, chills, states she did not take all of her blood pressure this morning except she did take her irbesartan. She endorses she took her torsemide as well but did not take her diltiazem, or carvedilol. Related Data Home Medications Medication Instructions Recorded Confirmed cholecalciferol (vitamin D3) 25 1,000 unit PO BEDTIME ##0 05/13/11 08/12/19 mcg (1,000 unit) capsule (Vitamin D3) cyanocobalamin (vitamin B-12) 5,000 mcg PO DAILY ##0 08/16/16 08/12/19 1,000 mcg tablet,extended release ascorbic acid (vitamin C) 500 mg 500 mg PO QDAY ##0 03/21/17 08/12/19 tablet carvedilol 12.5 mg tablet (Coreg) 25 mg PO BID 12/23/18 08/26/19 diltiazem HCl 180 mg capsule,24 180 mg PO DAILY 12/23/18 08/26/19 hr,extended release ezetimibe 10 mg tablet (Zetia) 10 mg PO BEDTIME 12/23/18 08/26/19 ibuprofen 600 mg tablet 600 mg PO BID PRN Pain 12/23/18 08/26/19 insulin glargine 100 unit/mL 50 unit SUBCUT QAM 12/23/18 08/26/19 subcutaneous solution (Lantus U-100 Insulin) irbesartan 75 mg tablet 150 mg PO DAILY 12/23/18 08/26/19 liraglutide 0.6 mg/0.1 mL (18 mg/3 1.2 mg SQ QPM 12/23/18 08/26/19 mL) subcutaneous pen injector (Victoza 2-Reuben) potassium gluconate 595 mg (99 mg) 595 mg PO DAILY Hypokalemia 12/23/18 08/26/19 tablet hydrocodone 5 mg-acetaminophen 325 1 tab PO BEDTIME PRN Pain 08/12/19 08/26/19 mg tablet rosuvastatin 20 mg tablet (Crestor) 20 mg PO QPM 08/12/19 08/26/19 torsemide 20 mg tablet 20 mg PO DAILY 08/12/19 08/26/19 Previous Rx's Medication Instructions Recorded [TRUET GLUCOSE STRIPS] 1 strip NR QDAY ##100 11/19/16 aspirin 81 mg tablet,delayed 81 mg PO BID #60 tabs 08/27/19 release hydroxyzine pamoate 25 mg capsule 25 mg PO BID PRN muscle spasm #30 08/28/19 (Vistaril) caps Allergies Allergy/AdvReac Type Severity Reaction Status Date / Time cefaclor [CEFACLOR] Allergy Intermediate RASH Verified 03/19/23 15:32 Cephalosporins Allergy Intermediate Rash, Verified 03/19/23 15:32 [CEPHALOSPORINS] Respiratory problems ciprofloxacin [From CIPRO] Allergy Intermediate RASH Verified 03/19/23 15:32 neomycin [NEOMYCIN] Allergy Intermediate RASH Verified 03/19/23 15:32 nitrofurantoin Allergy Intermediate RESPIRATORY Verified 03/19/23 15:32 [NITROFURANTOIN] PROBLEMS Quinolones [QUINOLONES] Allergy Intermediate Rash, Verified 03/19/23 15:32 Respiratory problems Sulfa (Sulfonamide Allergy Mild RASH, Verified 03/19/23 15:32 Antibiotics) HEADACHES [SULFA (SULFONAMIDE ANTIBIOTICS)] metformin [METFORMIN] AdvReac Severe Constant Verified 03/19/23 15:32 diarrhea oxycodone AdvReac Severe Hallucinations, Verified 03/19/23 15:32 spots of blindness, visual migraines exenatide [EXENATIDE] AdvReac Mild LOW BLOOD Verified 03/19/23 15:32 SUGAR, CONFUSION lisinopril [LISINOPRIL] AdvReac Mild COUGH, Verified 03/19/23 15:32 CHEST PAIN pioglitazone [PIOGLITAZONE] AdvReac Mild EDEMA Verified 03/19/23 15:32 Review of Systems <JOY Jefferson - Last Filed: 03/19/23 19:57> Review of Systems ROS Unobtainable: All systems reviewed & are unremarkable except as noted in HPI and below Patient History <JOY Jefferson - Last Filed: 03/19/23 19:57> Medical History (Updated 03/19/23 @ 19:07 by JOY Jefferson) Asthma Bilateral hip bursitis Bleeds easily CAD (coronary artery disease) Compression fracture (~1982) Diabetes Diverticulosis Easy bruisability HTN (hypertension) Hx of migraines Hyperlipidemia Large bowel obstruction (~2014) Non-STEMI (non-ST elevated myocardial infarction) (07/20/16) Osteoarthritis Pneumonia Surgical History History of arthroplasty of right knee (01/11/19) History of partial hysterectomy Hx of tonsillectomy Hx of vaginal surgery 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 General: Pleasant, sitting upright, in no acute distress, well groomed, afebrile HEENT: symmetrical facial expressions, moist mucous membranes, neck is supple patient has ecchymosis over the bridge of her nose, it is tender to palpation but her surrounding facial bones are nontender including her orbital rim, no crepitus, sinuses are tender to palpation but not exquisitely, full range of motion of her cervical spine without tenderness to palpation, CV: regular rate and rhythm, warm extremities Respiratory: normal work of breathing, without tachypnea or hypoxia. GI: abdomen soft, nondistended, without CVA tenderness bilaterally. MSK: moves all extremities, no weakness, normal tone, ambulatory without deficit Skin: brisk capillary refill, without rash or wound Neuro: clear speech and normal cognition, A&O x3, GCS 15, no focal motor or sensation deficits Initial Vital Signs Initial Vital Signs: Vital Signs Temperature 97.9 F 03/19/23 15:32 Pulse Rate 65 03/19/23 15:32 Respiratory Rate 18 03/19/23 15:32 Blood Pressure 216/93 H 03/19/23 15:32 Pulse Oximetry 96 03/19/23 15:32 Oxygen Delivery Method Room Air 03/19/23 15:32 <Karen Brasher DO - Last Filed: 03/23/23 08:10> Initial Vital Signs Initial Vital Signs: Vital Signs Temperature 97.9 F 03/19/23 15:32 Pulse Rate 65 03/19/23 15:32 Respiratory Rate 18 03/19/23 15:32 Blood Pressure 216/93 H 03/19/23 15:32 Pulse Oximetry 96 03/19/23 15:32 Oxygen Delivery Method Room Air 03/19/23 15:32 Course <JOY Jefferson - Last Filed: 03/19/23 19:57> Orders Ordered: Discontinued Medications Acetaminophen (Acetaminophen 325 Mg Tablet) 650 mg PO NOW ONE Stop: 03/19/23 18:47 Last Admin: 03/19/23 18:56 Dose: 650 mg Documented By: HARISH Carvedilol (Carvedilol 12.5 Mg Tablet) 25 mg PO NOW ONE Stop: 03/19/23 18:47 Last Admin: 03/19/23 18:54 Dose: 25 mg Documented By: HARISH Diltiazem HCl (Diltiazem Cd 180 Mg Cap) 180 mg PO NOW ONE Stop: 03/19/23 18:47 Last Admin: 03/19/23 18:55 Dose: 180 mg Documented By: HARISH Vital Signs Vital signs: Vital Signs - 8 hr 03/19/23 15:32 03/19/23 18:14 03/19/23 18:54 Temperature 97.9 F Pulse Rate 65 57 L 89 Respiratory Rate 18 18 Blood Pressure 216/93 H 216/95 H 215/90 H Pulse Oximetry 96 98 Oxygen Delivery Method Room Air Room Air 03/19/23 19:28 Temperature Pulse Rate 62 Respiratory Rate 16 Blood Pressure 185/77 H Pulse Oximetry 96 Oxygen Delivery Method Room Air <Karen Brasher DO - Last Filed: 03/23/23 08:10> Orders Ordered: Discontinued Medications Acetaminophen (Acetaminophen 325 Mg Tablet) 650 mg PO NOW ONE Stop: 03/19/23 18:47 Last Admin: 03/19/23 18:56 Dose: 650 mg Documented By: HARISH Carvedilol (Carvedilol 12.5 Mg Tablet) 25 mg PO NOW ONE Stop: 03/19/23 18:47 Last Admin: 03/19/23 18:54 Dose: 25 mg Documented By: HARISH Diltiazem HCl (Diltiazem Cd 180 Mg Cap) 180 mg PO NOW ONE Stop: 03/19/23 18:47 Last Admin: 03/19/23 18:55 Dose: 180 mg Documented By: HARISH Vital Signs Vital signs: Vital Signs - 8 hr 03/19/23 15:32 03/19/23 18:14 03/19/23 18:54 Temperature 97.9 F Pulse Rate 65 57 L 89 Respiratory Rate 18 18 Blood Pressure 216/93 H 216/95 H 215/90 H Pulse Oximetry 96 98 Oxygen Delivery Method Room Air Room Air 03/19/23 19:28 Temperature Pulse Rate 62 Respiratory Rate 16 Blood Pressure 185/77 H Pulse Oximetry 96 Oxygen Delivery Method Room Air MDM - Head Injury <JOY Jefferson - Last Filed: 03/19/23 19:57> Imaging Data CT scan - head: Radiologist's Impression: PROCEDURE:? CT HEAD/BRAIN WO CON ? INDICATIONS:? Mechanical fall residual head and neck pain ? TECHNIQUE:? Noncontrast 4.5 mm thick angled axial sections acquired from the foramen magnum to the vertex, with coronal and sagittal reformats.? For radiation dose reduction, the following was used:? automated exposure control, adjustment of mA and/or kV according to patient size.? ? COMPARISON:? [facility], CT, CT CERVICAL SPINE WO CON, 03/19/2023, 16:01.? [facility], CT, CT FACIAL BONES WO CON, 03/19/2023, 16:01.? [facility], CR, XR KNEE RT 3V, 03/19/2023, 15:51.? [facility], CR, XR CLAVICLE RT, 03/19/2023, 15:51. ? FINDINGS:? Image quality:? Excellent.? ? CSF spaces:? Basal cisterns are patent.? No extra-axial fluid collections.? The ventricles are symmetric in size and shape.? ? Brain:? No intracranial bleeds or masses.? There is cerebral volume loss for age, with resultant ventricular and sulcal prominence.? There are periventricular and deep white matter chronic small vessel ischemic changes.? There is intracranial internal carotid artery atherosclerosis.? ? Skull and face:? Calvarium and visualized facial bones appear intact, without suspicious lesions.? Incidental note is made of hyperostosis frontalis. This is not considered to be pathologic in a woman of this age. ? Sinuses:? There is complete opacification of the right maxillary sinus.? The paranasal sinuses otherwise appear clear. No abnormal fluid is seen within the mastoid air cells. ? ? IMPRESSION:? No acute intracranial hemorrhage is seen.? ? No acute intracranial process is seen.? ? Focal right maxillary sinus disease. ? ? Dictated by: Ritchie García M.D. on 03/19/2023 at 15:32 ? ? Approved by: Ritchie García M.D. on 03/19/2023 at 15:33 ? CT - cervical spine: Radiologist's Impression: PROCEDURE:? CT CERVICAL SPINE WO CON ? INDICATIONS:? Mechanical fall residual head and neck pain ? TECHNIQUE:? Noncontrast 3 mm thick sections acquired from the skull base to the T4 level.? Sagittal and coronal reformats were then constructed.? For radiation dose reduction, the following was used:? automated exposure control, adjustment of mA and/or kV according to patient size.? ? COMPARISON:? [facility], CT, CT HEAD/BRAIN WO CON, 03/19/2023, 16:01.? [facility], CT, CT FACIAL BONES WO CON, 03/19/2023, 16:01.? [facility], CR, XR KNEE RT 3V, 03/19/2023, 15:51.? [facility], CR, XR CLAVICLE RT, 03/19/2023, 15:51. ? FINDINGS:? Image quality:? Excellent.? ? Bones:? No fractures or dislocations.? Visualized superior ribs are intact.? ? Focal degenerative change is seen involving the C1-C2 interface anteriorly.? At the C5-C6 level, there is moderate disc space narrowing, with minimal retrolisthesis.? Milder degenerative changes are seen elsewhere.? ? Post CABG changes are partially seen. ? Soft tissues:? Prevertebral soft tissues are normal in thickness.? No paravertebral hematomas.? No apical pneumothoraces.? Atherosclerotic calcification is noted.? ? There is a densely calcified focus seen within the anterior left mediastinum, as on series 2, image 56 measuring 2 cm. ? ? IMPRESSION:? Negative for acute fracture. ? Degenerative changes are seen, which are worst at C5-C6. ? There is a 2 cm densely calcified focus seen within the left anterior superior mediastinum, which is non-specific, yet is most likely benign. ? ? Additional findings:? Post CABG changes ? ? Dictated by: Ritchie García M.D. on 03/19/2023 at 15:33 ? ? Approved by: Ritchie García M.D. on 03/19/2023 at 15:35 ? CT facial bones: Radiologist's Impression: PROCEDURE:? CT FACIAL BONES WO CON ? INDICATIONS:? Fall.? Facial trauma. ? TECHNIQUE:? Noncontrast 2.5 mm thick axial images acquired from the mandible through the frontal sinuses, with coronal and sagittal reformatting.? For radiation dose reduction, the following was used:? automated exposure control, adjustment of mA and/or kV according to patient size.? ? COMPARISON:? [facility], CT, CT HEAD/BRAIN WO CON, 03/19/2023, 16:01.? [facility], CT, CT CERVICAL SPINE WO CON, 03/19/2023, 16:01.? [facility], CR, XR KNEE RT 3V, 03/19/2023, 15:51.? [facility], CR, XR CLAVICLE RT, 03/19/2023, 15:51. ? FINDINGS:? Image quality:? There is artifact associated with the metallic hardware. ? ? Bones and teeth:? Orbital chapa are intact.? Sinus chapa show no fracture or deformity.? Nasal bones and septum are intact.? Visualized portions of the mandible demonstrate no fractures or subluxation.? Zygomatic arches are intact.? Pterygoid plates are intact.? Visualized portions of the skull base and auditory canals are intact.? ? Cervical spine degenerative changes are partially seen. ? Sinuses:? There is complete opacification seen of the right maxillary sinus.? There is demineralization of the medial wall of the right maxillary sinus, with mild medial bowing.? The paranasal sinuses otherwise appear clear. ? Soft tissues:? No edema, masses, or fluid collections.? No enlarged lymph nodes.? No soft tissue lacerations or debris.? ? Vascular:? Visualized vascular structures appear normal in the absence of contrast.? Bony vascular foramina and canals are intact.? ? IMPRESSION:? No displaced fracture can be seen. ? Focal right maxillary sinus disease is seen, with a chronic appearance. ? ? Dictated by: Ritchie García M.D. on 03/19/2023 at 15:35 ? ? Approved by: Ritchie García M.D. on 03/19/2023 at 15:37 ? Extremity x-ray #1: Radiologist's Impression: PROCEDURE:? XR KNEE RT 3V ? INDICATIONS:? Mechanical fall residual head and neck pain ? TECHNIQUE:? 3 views of the knee were acquired.? ? COMPARISON:? [facility], CR, XR KNEE RT 1TO2V, 01/11/2019, 14:27.? [facility], ARELI, XR KNEE ARTHRITIC SERIES LT, 09/09/2019, 8:33.? [facility], CT, CT CERVICAL SPINE WO CON, 03/19/2023, 16:01.? [facility], CT, CT HEAD/BRAIN WO CON, 03/19/2023, 16:01.? [facility], CT, CT FACIAL BONES WO CON, 03/19/2023, 16:01.? [facility], CR, XR CLAVICLE RT, 03/19/2023, 15:51.? [facility], CR, XR KNEE LT 1TO2V, 08/26/2019, 17:09. ? FINDINGS:? ? Bones:? No fractures or dislocations.? No suspicious bony lesions.? ? Right knee arthroplasty hardware is seen, without findings of failure or loosening. ? Soft tissues:? There is a [id number] right knee joint effusion.? No suspicious soft tissue calcifications.? ? ? IMPRESSION:? [id number] right knee joint effusion. ? Negative for fracture. ? Intact appearing right knee arthroplasty hardware. ? ? Dictated by: Ritchie García M.D. on 03/19/2023 at 15:40 ? ? Approved by: Ritchie García M.D. on 03/19/2023 at 15:41 ? Chest x-ray: Radiologist's Impression: PROCEDURE:? XR CLAVICLE RT ? INDICATIONS:? Mechanical fall residual head and neck pain ? TECHNIQUE:? 2 views of the clavicle were acquired.? ? COMPARISON:? [facility], CT, CT CERVICAL SPINE WO CON, 03/19/2023, 16:01.? [facility], CT, CT HEAD/BRAIN WO CON, 03/19/2023, 16:01.? [facility], CT, CT FACIAL BONES WO CON, 03/19/2023, 16:01.? [facility], CR, XR KNEE RT 3V, 03/19/2023, 15:51. ? FINDINGS:? ? Bones:? No fractures or dislocations.? No suspicious bony lesions.? ? Degenerative changes are seen, including subacromial spurring. ? Post CABG changes are partially seen. ? Soft tissues:? No suspicious soft tissue calcifications.? The visualized lung demonstrates an unremarkable appearance. ? ? IMPRESSION:? No displaced clavicle fracture is seen on these plain films. ? ? Dictated by: Ritchie García M.D. on 03/19/2023 at 15:37 ? ? Approved by: Ritchie García M.D. on 03/19/2023 at 15:39 ? MDM Narrative Medical decision making narrative: Chief Complaint: Head injury last night Independent historian: Patient her Multiple etiologies for patient's symptoms considered including, but not limited to: Intracranial hemorrhage/strain, whiplash injury, skull fracture, cervical spine fracture, facial bone fracture, concussion, subdural, I have independently reviewed the patient's vital signs and nursing notes as well as prior records if available. Pertinent records include: Patient's medication list from her primary care provider My interpretation of imaging: All images are negative for acute fracture, only acute abnormality is a right knee effusion and no evidence of hardware fracture or failure to the right knee arthroplasty. CT head is negative for intracranial hemorrhage or skull fracture, cervical spine is negative for acute fracture or other abnormality, clavicle fracture shows a fully intact clavicle without surrounding evidence of other upper chest abnormality. Facial bone CT is negative for facial fractures including nasal bones, chronic maxillary sinus this is seen Consultations: Patient has symptoms of concussion today, she is also hypertensive related to not taking all of her antihypertensives this morning because she came from [place] for evaluation after her primary care appointment. She does not have any neuro deficits on my exam, she does endorse symptoms of dizziness with position changes, headache, lightheadedness. She was treated with Tylenol after waiting here in the emergency department for several hours. She was given her evening diltiazem and carvedilol for systolic blood pressure 215 and was ready for discharge by 19:30pm with improved vital signs. She was able to catch the [facility] to go back home to [place]. She does not have any symptoms of weakness, vision changes, my neuro exam is negative for abnormality. Encouraged her to use an Baudilio bandage for supportive her right knee and to ice it frequently, to take Tylenol every 6-8 hours as needed and to rest as much as she needs for the next few days. Encouraged her to stay hydrated and follow up closely with her primary care provider. Her blood pressure came down nicely after her medications were given, her discharge BP is 185/77 with a heart rate of 62. She was ambulatory without assistance. Social considerations that may affect disposition: none Questions are addressed and there is agreement with the plan and for follow-up. I consulted with the ED attending physician Dr. Brasher as needed for higher level of care considerations and they were available for discussion and recommendations regarding plan of care and diagnostic testing. Patient is appropriate for outpatient management. #415 - Emergency Medicine: Utilization of CT for Minor Blunt Head Trauma (Adult) Patient is 18 or older, presenting with minor blunt head trauma. Head CT (including cosigned orders) was ordered by an emergency day care aide for trauma because the patient: [ ] is vomiting\ severe/dangerous mechanism of injury was identified [ ] is experiencing a severe headache [ ] sustained loss of consciousness [ ] GCS less than 15 [ ] is experiencing amnesia of the event or focal neurologic deficit [ ] sustained injury above the clavicles [ ] is suspected of taking anticoagulant medications [x ] is 65 years or older [ ] is intoxicated Discharge Plan Departure Patient Disposition: Home Clinical Impression: Effusion of knee joint right, Essential hypertension Fall Qualifiers: Encounter type: initial encounter Qualified Code(s): W19.XXXA - Unspecified fall, initial encounter Closed head injury Qualifiers: Encounter type: initial encounter Qualified Code(s): S09.90XA - Unspecified injury of head, initial encounter Concussion Qualifiers: Encounter type: initial encounter Loss of consciousness presence/duration: without LOC Qualified Code(s): S06.0X0A - Concussion without loss of consciousness, initial encounter Instructions: Concussion, DI for Closed Head Injury, DI for Knee Effusion Activity Restrictions/Additional Instructions: *You have been diagnosed with a fall with a head injury, the facial bone CT without any fractures this is likely and should start to get better in a few days. X-ray of your right knee shows fluid within the joint however there is no fracture and there is no visible changes to the arthroplasty hardware, there are no associated fractures related to the hardware either. The CT of your head and brain does not show any bleeding, no other abnormal finding. The clavicle does not show fracture either and this is likely soft tissue injury. CT cervical spine/neck is negative for fracture as well. You will likely be sore for the next few days, please rest your brain and your body until your symptoms start to improve. Is okay to rest, please get plenty of sleep, stay hydrated, and change positions slowly. Return to the emergency department if you develop incontinence, nausea vomiting, worsening symptoms or weakness. I have included some information about concussions, this typically applies to children in school but the ideas about reducing stimulation and physical activity apply to you as well. *What to do: *Please continue to take your regular medications as directed. [ ] New medication prescriptions sent to your pharmacy: [ ] [ ] New medication written as a paper prescription [x ] No new medications given *Please call and schedule follow up with your primary care provider in 2-3 days, at least for an update. Let them know you were seen in the Emergency Department for the above problem. We will electronically transmit a record of today's note if your PCP or specialist is in our system. *If you do not have a primary care provider please contact [phone] to establish care with one of the [facility] primary care providers. *Return to the Emergency Department for worsening symptoms, inability to keep liquids down, fever greater than 101F, chills, or other concerning symptom. Prescriptions: No Action cholecalciferol (vitamin D3) [Vitamin D3] 1,000 unit Capsule 1,000 unit PO BEDTIME Qty: 0 cyanocobalamin (vitamin B-12) 1,000 MCG tablet extended release 5,000 mcg PO DAILY Qty: 0 [TRUET GLUCOSE STRIPS] 1 strip NR QDAY Qty: 100 5RF ascorbic acid (vitamin C) 500 MG tablet 500 mg PO QDAY Qty: 0 Lantus U-100 Insulin 100 unit/mL Solution 50 unit SUBCUT QAM Patient Comments: pt states she 37 units (normally takes 50 units) diltiazem HCl 180 mg Capsule,Extended Release 24 Hr 180 mg PO DAILY irbesartan 75 mg Tablet 150 mg PO DAILY ibuprofen 600 mg Tablet 600 mg PO BID PRN (Reason: Pain) potassium gluconate 595 mg (99 mg) Tablet 595 mg PO DAILY carvedilol [Coreg] 12.5 MG tablet 25 mg PO BID ezetimibe [Zetia] 10 MG tablet 10 mg PO BEDTIME Victoza 2-Reuben 0.6 MG/0.1 ML pen injector 1.2 mg SQ QPM Patient Comments: After dinner meal torsemide 20 mg Tablet 20 mg PO DAILY rosuvastatin [Crestor] 20 mg Tablet 20 mg PO QPM hydrocodone-acetaminophen 5-325 mg Tablet 1 tab PO BEDTIME PRN (Reason: Pain) aspirin 81 mg Tablet,Delayed Release (Dr/Ec) 81 mg PO BID Qty: 60 0RF hydroxyzine pamoate [Vistaril] 25 mg capsule 25 mg PO BID PRN (Reason: muscle spasm) Qty: 30 0RF Rx Instructions: take 1 capsule by mouth twice a day as needed for muscle spasms Referrals: Luzma Santana MD [Non-Staff] - Stand Alone Forms: Patient Portal/API <Karen Brasher DO - Last Filed: 03/23/23 08:10> Cosign ED Attending Daphneature Attestation: I was immediately available in the department for consultation. Documentation has been reviewed.
[2023-03-19 19:28] VITALS: BP 185/77; PULSE 62; RESP 16; O2SAT 96
== END 2023-03-19 19:29 | disposition home or self-care (01) ==
PROVIDERS: Emergency Provider Nurse Practitioner Critical Care Medicine; Family Provider Family Medicine
DX: S06.0X0A Concussion without loss of consciousness, initial encounter (principal); M25.461 Effusion, right knee; I10 Essential (primary) hypertension; M54.2 Cervicalgia; W18.30XA Fall on same level, unspecified, initial encounter
CPT/HCPCS: 70450; 70486; 72125; 73000; 73562; 99284

== ENCOUNTER 2024-08-11 07:35 | Emergency (ER) | payer MEDICARE, SELFPAY ==
[2019-08-26 19:24] VITALS: BMI 30.7
[2024-08-11 07:41] VITALS: BP 208/84; PULSE 58; RESP 16; TEMP 36.6; O2SAT 96; BMI 30.5
--- NOTE | 2024-08-11 07:48 | ED_ITS ---
HPI - General Adult General Chief complaint: Wound/Laceration Stated complaint: L Hand Injury Time Seen by Provider: 08/11/24 07:39 History of Present Illness HPI narrative: 83-year-old woman with a history of hypertension and diabetes was taking a pit out of an avocado and suffered a puncture wound to the palmar surface of her left hand. She describes the bleeding taking quite a bit of time to be controlled. She is lost the wound thoroughly. The injury happened over 12 hours ago. 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 She does need a tetanus update. Related Data Home Medications Medication Instructions Recorded Confirmed cholecalciferol (vitamin D3) 25 1,000 unit PO BEDTIME ##0 05/13/11 08/12/19 mcg (1,000 unit) capsule (Vitamin D3) cyanocobalamin (vitamin B-12) 5,000 mcg PO DAILY ##0 08/16/16 08/12/19 1,000 mcg tablet,extended release ascorbic acid (vitamin C) 500 mg 500 mg PO QDAY ##0 03/21/17 08/12/19 tablet carvedilol 12.5 mg tablet (Coreg) 25 mg PO BID 12/23/18 08/26/19 diltiazem HCl 180 mg capsule,24 180 mg PO DAILY 12/23/18 08/26/19 hr,extended release ezetimibe 10 mg tablet (Zetia) 10 mg PO BEDTIME 12/23/18 08/26/19 ibuprofen 600 mg tablet 600 mg PO BID PRN Pain 12/23/18 08/26/19 insulin glargine 100 unit/mL 50 unit SUBCUT QAM 12/23/18 08/26/19 subcutaneous solution (Lantus U-100 Insulin) irbesartan 75 mg tablet 150 mg PO DAILY 12/23/18 08/26/19 liraglutide 0.6 mg/0.1 mL (18 mg/3 1.2 mg SQ QPM 12/23/18 08/26/19 mL) subcutaneous pen injector (Victoza 2-Reuben) potassium gluconate 595 mg (99 mg) 595 mg PO DAILY Hypokalemia 12/23/18 08/26/19 tablet hydrocodone 5 mg-acetaminophen 325 1 tab PO BEDTIME PRN Pain 08/12/19 08/26/19 mg tablet rosuvastatin 20 mg tablet (Crestor) 20 mg PO QPM 08/12/19 08/26/19 torsemide 20 mg tablet 20 mg PO DAILY 08/12/19 08/26/19 Previous Rx's Medication Instructions Recorded [TRUET GLUCOSE STRIPS] 1 strip NR QDAY ##100 11/19/16 aspirin 81 mg tablet,delayed 81 mg PO BID #60 tabs 08/27/19 release hydroxyzine pamoate 25 mg capsule 25 mg PO BID PRN muscle spasm #30 08/28/19 (Vistaril) caps cephalexin 500 mg capsule 500 mg PO TID #21 caps 08/11/24 Allergies Allergy/AdvReac Type Severity Reaction Status Date / Time cefaclor [CEFACLOR] Allergy Intermediate RASH Verified 03/19/23 15:32 Cephalosporins Allergy Intermediate Rash, Verified 03/19/23 15:32 [CEPHALOSPORINS] Respiratory problems ciprofloxacin [From CIPRO] Allergy Intermediate RASH Verified 03/19/23 15:32 neomycin [NEOMYCIN] Allergy Intermediate RASH Verified 03/19/23 15:32 nitrofurantoin Allergy Intermediate RESPIRATORY Verified 03/19/23 15:32 [NITROFURANTOIN] PROBLEMS Quinolones [QUINOLONES] Allergy Intermediate Rash, Verified 03/19/23 15:32 Respiratory problems Sulfa (Sulfonamide Allergy Mild RASH, Verified 03/19/23 15:32 Antibiotics) HEADACHES [SULFA (SULFONAMIDE ANTIBIOTICS)] metformin [METFORMIN] AdvReac Severe Constant Verified 03/19/23 15:32 diarrhea oxycodone AdvReac Severe Hallucinations, Verified 03/19/23 15:32 spots of blindness, visual migraines exenatide [EXENATIDE] AdvReac Mild LOW BLOOD Verified 03/19/23 15:32 SUGAR, CONFUSION lisinopril [LISINOPRIL] AdvReac Mild COUGH, Verified 03/19/23 15:32 CHEST PAIN pioglitazone [PIOGLITAZONE] AdvReac Mild EDEMA Verified 03/19/23 15:32 Patient History Medical History (Updated 08/11/24 @ 08:12 by Radha Hazel MD) Osteoarthritis CAD (coronary artery disease) Non-STEMI (non-ST elevated myocardial infarction) (07/20/16) Easy bruisability Bleeds easily Bilateral hip bursitis Compression fracture (~1982) Diabetes Large bowel obstruction (~2014) Diverticulosis Hyperlipidemia HTN (hypertension) Pneumonia Asthma Hx of migraines Surgical History History of arthroplasty of right knee (01/11/19) Hx of tonsillectomy Hx of vaginal surgery History of partial hysterectomy 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) Status post cataract extraction of both eyes with insertion of intraocular lens Status post hysterectomy Family History Brother Age: 81 Diabetes mellitus Heart disease High cholesterol Brother Age: 70 Overweight Diabetes mellitus Mother Cancer Sister Age: 87 Diabetes mellitus Social History household members: spouse Smoking Status: Former smoker alcohol intake: current Smoking Status: Former smoker alcohol intake frequency: a few times a week Substance Use Type: does not use Exam Initial Vital Signs Initial Vital Signs: General: Alert appropriate in no acute distress Respiratory: Able to speak in full sentences, no obvious respiratory distress Skin: No obvious rashes, warm and dry Neurologic: Grossly intact no obvious asymmetries or abnormalities Psych: appropriate insight and affect, cooperative Extremity: Left hand with an approximately 1 cm puncture type wound in the middle of the hand bruising around it the wound itself is clean. No drainage. She does have decreased sensation from the area of the wound into the V of the fingers between the 1st and 2nd finger and the ulnar aspect of the 1st finger. 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 Medical Decision Making MDM Narrative Medical decision making narrative: 83-year-old woman was trying to pick an avocado and has a puncture wound to the palmar surface of the left hand. There some bruising, the wound is small enough that suturing is not appropriate and drainage is going to be appropriate if it begins. She has some minor paresthesia on the inner surface of the index finger but otherwise is able to move and use the hand appropriately. We talked about keeping the wound clean and dry, she has given a splint for comfort. Tetanus status is updated. We will place her on Keflex for 5 days for infection risk. Clearly reviewed reasons to return to the emergency department including what a deep tissue infection might look like and how it might look different from a superficial cellulitis. Discussed the nerve injury, suspect that she likely will get some sensation back that she may always have a small decreased sensation in the area of the severed nerve. Questions are answered she is safe for discharge Discharge Plan Departure Patient Disposition: Home Clinical Impression: Cut of left palm, Digital nerve injury Instructions: DI for Puncture Wound, Tetanus, Diphtheria, Pertussis (Tdap) Vaccine Activity Restrictions/Additional Instructions: Thank you for coming in today I am glad that the bleeding has been controlled. The puncture wound is small enough in the risk for infection is high enough that completely closing this wound is not going to be appropriate. Using antibiotic and a Band-Aid while the wound closes is appropriate You clearly cut 1 of the tiny nerves going to the inner part of your point her finger. Often times this does get better, however, you may still always had of a bit of numbness in this area. If you notice any superficial redness or drainage this is a significant problem. Of more concern is infection developing deep inside the hand. This would present as your entire hand being more swollen, warmth to the entire hand, tenderness with making a fist and sometimes fevers and chills. If you develop any of this you need to be seen immediately. I have given you a prescription for cephalexin to prevent infection, please complete the entire course The antibiotic prescription was electronically transmitted to [facility] for you to begin later today I have given you premade wrist splint simply for comfort, use the splint as long as it is helpful We have updated your tetanus status today. It also has pertussis included(whooping cough) which is a good thing to update as we have been seeing an increase in fallopian cough in the community. If you find that you are getting worse or develop any new symptoms, please feel free to return to the emergency department for further evaluation. Prescriptions: New cephalexin 500 mg capsule 500 mg PO TID Qty: 21 0RF No Action cholecalciferol (vitamin D3) [Vitamin D3] 1,000 unit Capsule 1,000 unit PO BEDTIME Qty: 0 cyanocobalamin (vitamin B-12) 1,000 MCG tablet extended release 5,000 mcg PO DAILY Qty: 0 [TRUET GLUCOSE STRIPS] 1 strip NR QDAY Qty: 100 5RF ascorbic acid (vitamin C) 500 MG tablet 500 mg PO QDAY Qty: 0 Lantus U-100 Insulin 100 unit/mL Solution 50 unit SUBCUT QAM Patient Comments: pt states she 37 units (normally takes 50 units) diltiazem HCl 180 mg Capsule,Extended Release 24 Hr 180 mg PO DAILY irbesartan 75 mg Tablet 150 mg PO DAILY ibuprofen 600 mg Tablet 600 mg PO BID PRN (Reason: Pain) potassium gluconate 595 mg (99 mg) Tablet 595 mg PO DAILY carvedilol [Coreg] 12.5 MG tablet 25 mg PO BID ezetimibe [Zetia] 10 MG tablet 10 mg PO BEDTIME Victoza 2-Reuben 0.6 MG/0.1 ML pen injector 1.2 mg SQ QPM Patient Comments: After dinner meal torsemide 20 mg Tablet 20 mg PO DAILY rosuvastatin [Crestor] 20 mg Tablet 20 mg PO QPM hydrocodone-acetaminophen 5-325 mg Tablet 1 tab PO BEDTIME PRN (Reason: Pain) aspirin 81 mg Tablet,Delayed Release (Dr/Ec) 81 mg PO BID Qty: 60 0RF hydroxyzine pamoate [Vistaril] 25 mg capsule 25 mg PO BID PRN (Reason: muscle spasm) Qty: 30 0RF Rx Instructions: take 1 capsule by mouth twice a day as needed for muscle spasms Stand Alone Forms: Patient Portal/API
[2024-08-11] MEDS: BACITRACIN OINT 0.9 GM PCKT 1 APPLIC TOP (07:59)
== END 2024-08-11 08:23 | disposition home or self-care (01) ==
PROVIDERS: Emergency Provider Emergency Medicine; Family Provider Family Medicine
DX: S61.412A Laceration without foreign body of left hand, initial encounter (principal); S64.92XA Injury of unspecified nerve at wrist and hand level of left arm, initial encounter; W26.9XXA Contact with unspecified sharp object(s), initial encounter
CPT/HCPCS: 99282; 99283